=== PATIENT | female | born 1975 | race Hispanic/Latino ===

== ENCOUNTER 2016-05-09 16:26 | Observation (INO) | payer MEDICAID ==
[2016-05-09 16:33] VITALS: BMI 26.6
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
[2016-05-09] MEDS ORDERED: diaZEpam 10 mg/2 ml Inj IVP ONE (16:44)
[2016-05-09] MEDS ORDERED: Sodium Chloride 0.9% 1,000 ML IV SCH (16:45)
[2016-05-09 17:10] LABS: URINE BILIRUBIN NEGATIVE (NEGATIVE); URINE BLOOD TRACE-INTACT (NEGATIVE); URINE GLUCOSE (UA) >=1000 mg/dL (NEGATIVE); URINE KETONE 15 mg/dL (NEGATIVE); URINE LEUKOCYTE ESTERASE NEGATIVE Leu/uL (NEGATIVE); URINE PROTEIN NEGATIVE mg/dL (<30 mg/dL); URINE UROBILINOGEN 0.2 E.U./dL (<1 E.U./dL)
[2016-05-09 17:16] LABS: URINE APPEARANCE CLEAR (CLEAR); URINE COLOR YELLOW (YELLOW)
[2016-05-09 17:34] LABS: URINE BACTERIA FEW (NEG); URINE RBC NEGATIVE /hpf (0-2)
[2016-05-09 18:22] LABS: ADD MANUAL DIFF? NO
[2016-05-09] MEDS ORDERED: HYDROmorphone 1 mg/ml ISec IVP STA (18:29)
[2016-05-09 18:33] LABS: BASO # 0.03 K/mm3 (0.0-2.0); BASO % 0.3 % (0.0-3.0); EOS # 0.1 (0.0-0.7); EOS % 1.5 % (1.5-5.0); GRAN # 6.99 (1.4-6.5); GRAN % 76.1 % (50.0-68.0); HEMATOCRIT 39.6 % (36.0-48.0); LYMPH # 1.6 (1.2-3.4); LYMPH % 17.4 % (22.0-35.0); MEAN CORPUSCULAR HGB CONC 34.1 g/dl (31.0-37.0); MEAN PLATELET VOLUME 10.7 fl (7.0-11.0); MONO # 0.4 (0.1-0.6); MONO % 4.7 % (1.0-6.0); PLATELET COUNT 406 10^3/uL (120.0-450.0); RED CELL DISTRIBUTION WIDTH 14.3 % (11.5-14.5); WHITE BLOOD COUNT 9.2 10^3/ul (4.5-11.0)
[2016-05-09 18:38] LABS: ALB/GLOB RATIO 1.2 (1.1-1.8); ALKALINE PHOSPHATASE 97 U/L (38-133); ALT/SGPT 17 U/L (7-56); AST/SGOT 23 U/L (15-39); BILIRUBIN,TOTAL 0.7 mg/dL (0.2-1.3); BLOOD UREA NITROGEN 14 mg/dL (7-21); CALCIUM 9.4 mg/dL (8.4-10.5); CARBON DIOXIDE 28 mmol/L (21-33); CHLORIDE 96 mmol/L (98-107); GFR AFRICAN-AMERICAN > 60; SODIUM 132 mmol/L (132-148); TOTAL PROTEIN 6.8 g/dL (5.8-8.3)
[2016-05-09 18:47] LABS: GLUCOSE,RANDOM 630 mg/dL (70-110)
[2016-05-09] MEDS ORDERED: Insulin Regular 1 UNITS/0.01 ML ML IV STA ×2 (18:48→21:45)
[2016-05-09] MEDS ORDERED: Sodium Chloride 0.9% 1,000 ML IV STA (18:48)
--- NOTE | 2016-05-09 20:08 | RAD ---
PROCEDURE: Radiographs of the Lumbar Spine. HISTORY: lower back pain COMPARISON: CT lumbar spine without IV contrast performed 02/20/15 FINDINGS: BONES: Alignment appears satisfactory. No listhesis. No acute displaced fracture identified. DISC SPACES: Unremarkable. OTHER FINDINGS: None. IMPRESSION: No acute displaced fracture or subluxation identified.
[2016-05-09] MEDS ORDERED: Morphine 4 mg/ml ISec IVP STA (23:01)
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
[2016-05-10] MEDS ORDERED: Oxycodone/Acetaminophen 5/325 mg Tab PO PRN (00:27)
[2016-05-10 00:56] VITALS: RESP 20; TEMP 97.7
[2016-05-10] MEDS ORDERED: Insulin Detemir 100 units/ml Vial (Levemir) SC STA (00:59)
[2016-05-10 01:20] LABS: BLOOD UREA NITROGEN 14 mg/dL (7-21); CALCIUM 8.5 mg/dL (8.4-10.5); CARBON DIOXIDE 23 mmol/L (21-33); CHLORIDE 99 mmol/L (98-107); GFR AFRICAN-AMERICAN > 60; POTASSIUM 4.7 mmol/L (3.6-5.0); SODIUM 130 mmol/L (132-148)
[2016-05-10] MEDS: Sodium Chloride 0.9% 1,000 ML IV SCH ×2 (01:20→10:14)
[2016-05-10 01:24] LABS: GLUCOSE,RANDOM 430 mg/dL (70-110)
[2016-05-10 01:32] LABS: TROPONIN I < 0.01 ng/mL
[2016-05-10] MEDS ORDERED: Insulin Lispro 1 UNITS/0.01 ML SC STA (02:10)
[2016-05-10] MEDS ORDERED: Potassium Chloride 20 mEq/15 ml LIQ UD PO STA (02:11)
[2016-05-10 07:07] LABS: ADD MANUAL DIFF? NO
[2016-05-10 07:18] LABS: BASO # 0.05 K/mm3 (0.0-2.0); BASO % 0.4 % (0.0-3.0); EOS # 0.3 (0.0-0.7); EOS % 2.7 % (1.5-5.0); GRAN # 6.94 (1.4-6.5); GRAN % 61.5 % (50.0-68.0); HEMATOCRIT 34.3 % (36.0-48.0); LYMPH # 3.3 (1.2-3.4); LYMPH % 29.6 % (22.0-35.0); MEAN CELL VOLUME 85.1 fL (80.0-105.0); MEAN CORPUSCULAR HEMOGLOBIN 28.8 pg (25.0-35.0); MEAN CORPUSCULAR HGB CONC 33.8 g/dl (31.0-37.0); MEAN PLATELET VOLUME 10.1 fl (7.0-11.0); MONO # 0.7 (0.1-0.6); MONO % 5.8 % (1.0-6.0); PLATELET COUNT 360 10^3/uL (120.0-450.0); RED CELL DISTRIBUTION WIDTH 14.1 % (11.5-14.5); WHITE BLOOD COUNT 11.3 10^3/ul (4.5-11.0)
[2016-05-10] MEDS ORDERED: Insulin Lispro 1 UNITS/0.01 ML SC SCH (07:30)
[2016-05-10] MEDS ORDERED: Insulin Lispro (humaLOG) MEDIUM Coverage SC SCH (07:30)
[2016-05-10 07:38] LABS: ALKALINE PHOSPHATASE 70 U/L (38-133); ALT/SGPT 17 U/L (7-56); AST/SGOT 17 U/L (15-39); BILIRUBIN,TOTAL 0.5 mg/dL (0.2-1.3); BLOOD UREA NITROGEN 10 mg/dL (7-21); CALCIUM 8.6 mg/dL (8.4-10.5); CARBON DIOXIDE 25 mmol/L (21-33); CHLORIDE 105 mmol/L (98-107); CHOLESTEROL 119 mg/dL (130-200); GFR AFRICAN-AMERICAN > 60; GLUCOSE,RANDOM 136 mg/dL (70-110); POTASSIUM 3.8 mmol/L (3.6-5.0); SODIUM 135 mmol/L (132-148); TOTAL PROTEIN 5.8 g/dL (5.8-8.3)
[2016-05-10 07:50] LABS: TROPONIN I < 0.01 ng/mL
[2016-05-10 07:53] LABS: FREE T4 0.51 ng/dL (0.78-2.19); T4 3.6 ug/dL (5.5-11.0)
[2016-05-10 08:06] LABS: THYROID STIMULATING HORMONE 3.31 mIU/mL (0.46-4.68)
[2016-05-10 08:09] VITALS: BP 117/75; PULSE 82; O2SAT 99
--- NOTE | 2016-05-10 11:50 | US ---
HISTORY: Leg pain and swelling. Evaluate for DVT PHYSICIAN(S): John Gerardo MD. TECHNIQUE: Duplex sonography and color-flow Doppler with graded compression were used to evaluate the deep venous systems of both lower extremities. FINDINGS: The visualized deep venous systems of both lower extremities are sonographically normal and compressible. Normal wave forms and augmentation are seen. There is no sonographic evidence for deep venous thrombosis in the visualized segments of both lower extremities. IMPRESSION: No sonographic evidence for deep venous thrombosis in the visualized segments of both lower extremities.
--- NOTE | 2016-05-10 14:25 | CP.PCM.DIS ---
<Cabrera Joe - Last Filed: 05/10/16 14:25> Provider - Provider Date of Admission: 05/09/16 23:08 Attending physician: Charito Ornelas MD Primary care physician: NO PRIMARY CARE PROVIDER Time Spent in preparation of Discharge (in minutes): 45 Diagnosis - Discharge Diagnosis (1) Noncompliance with medication regimen Status: Active Priority: Medium (2) Uncontrolled diabetes mellitus Status: Acute Priority: Medium (3) Anxiety Status: Chronic Priority: Medium Hospital Course - Lab Results Lab Results: Most Recent Lab Values WBC 11.3 10^3/ul (4.5-11.0) H D 05/10/16 07:05 RBC 4.03 10^6/uL (3.5-6.1) 05/10/16 07:05 Hgb 11.6 gm/dL (12.0-16.0) L 05/10/16 07:05 Hct 34.3 % (36.0-48.0) L 05/10/16 07:05 MCV 85.1 fL (80.0-105.0) 05/10/16 07:05 MCH 28.8 pg (25.0-35.0) 05/10/16 07:05 MCHC 33.8 g/dl (31.0-37.0) 05/10/16 07:05 RDW 14.1 % (11.5-14.5) 05/10/16 07:05 Plt Count 360 10^3/uL (120.0-450.0) 05/10/16 07:05 MPV 10.1 fl (7.0-11.0) 05/10/16 07:05 Gran % 61.5 % (50.0-68.0) 05/10/16 07:05 Lymph % (Auto) 29.6 % (22.0-35.0) 05/10/16 07:05 [place] % (Auto) 5.8 % (1.0-6.0) 05/10/16 07:05 Eos % (Auto) 2.7 % (1.5-5.0) 05/10/16 07:05 Baso % (Auto) 0.4 % (0.0-3.0) 05/10/16 07:05 Gran # 6.94 (1.4-6.5) H 05/10/16 07:05 Lymph # 3.3 (1.2-3.4) 05/10/16 07:05 [place] # 0.7 (0.1-0.6) H 05/10/16 07:05 Eos # 0.3 (0.0-0.7) 05/10/16 07:05 Baso # 0.05 K/mm3 (0.0-2.0) 05/10/16 07:05 Sodium 135 mmol/L (132-148) 05/10/16 07:05 Potassium 3.8 mmol/L (3.6-5.0) 05/10/16 07:05 Chloride 105 mmol/L (98-107) 05/10/16 07:05 Carbon Dioxide 25 mmol/L (21-33) 05/10/16 07:05 Anion Gap 9 (10-20) L 05/10/16 07:05 BUN 10 mg/dL (7-21) 05/10/16 07:05 Creatinine 0.5 mg/dL (0.5-1.4) 05/10/16 07:05 Est GFR ( Amer) > 60 05/10/16 07:05 Est GFR (Non-Af Amer) > 60 05/10/16 07:05 POC Glucose (mg/dL) 247 mg/dL (65-110) H 05/10/16 04:32 Random Glucose 136 mg/dL (70-110) H 05/10/16 07:05 Calcium 8.6 mg/dL (8.4-10.5) 05/10/16 07:05 Total Bilirubin 0.5 mg/dL (0.2-1.3) 05/10/16 07:05 AST 17 U/L (15-39) 05/10/16 07:05 ALT 17 U/L (7-56) 05/10/16 07:05 Alkaline Phosphatase 70 U/L (38-133) 05/10/16 07:05 Lactate Dehydrogenase 320 U/L (333-699) L 05/10/16 07:05 Total Creatine Kinase 43 U/L (35-230) 05/10/16 07:05 Troponin I < 0.01 ng/mL 05/10/16 07:05 Total Protein 5.8 g/dL (5.8-8.3) 05/10/16 07:05 Albumin 3.0 g/dL (3.0-4.8) 05/10/16 07:05 Globulin 2.9 gm/dL 05/10/16 07:05 Albumin/Globulin Ratio 1.0 (1.1-1.8) L 05/10/16 07:05 Triglycerides 104 mg/dL (35-160) 05/10/16 07:05 Cholesterol 119 mg/dL (130-200) L 05/10/16 07:05 LDL Cholesterol Direct 74 mg/dL (0-129) 05/10/16 07:05 HDL Cholesterol 33 mg/dL (29-60) 05/10/16 07:05 Free T4 0.51 ng/dL (0.78-2.19) L 05/10/16 07:05 Thyroxine (T4) 3.6 ug/dL (5.5-11.0) L 05/10/16 07:05 TSH 3rd Generation 3.31 mIU/mL (0.46-4.68) 05/10/16 07:05 Urine Color Yellow (YELLOW) 05/09/16 17:00 Urine Appearance Clear (CLEAR) 05/09/16 17:00 Urine pH 6.0 (4.7-8.0) 05/09/16 17:00 Ur Specific [place] <= 1.005 (1.005-1.035) 05/09/16 17:00 Urine Protein Negative mg/dL (<30 mg/dL) 05/09/16 17:00 Urine Glucose (UA) >=1000 mg/dL (NEGATIVE) 05/09/16 17:00 Urine Ketones 15 mg/dL (NEGATIVE) H 05/09/16 17:00 Urine Blood Trace-intact (NEGATIVE) H 05/09/16 17:00 Urine Nitrate Negative (NEGATIVE) 05/09/16 17:00 Urine Bilirubin Negative (NEGATIVE) 05/09/16 17:00 Urine Urobilinogen 0.2 E.U./dL (<1 E.U./dL) 05/09/16 17:00 Ur Leukocyte Esterase Negative Luzmaria/uL (NEGATIVE) 05/09/16 17:00 Urine RBC Negative /hpf (0-2) 05/09/16 17:00 Urine WBC 1 - 3 /hpf (0-6) 03/18/17 17:00 Ur Epithelial Cells 4 - 5 /hpf (0-5) 05/09/16 17:00 Urine Bacteria Few (NEG) 05/09/16 17:00 Urine HCG, Qual Negative (NEGATIVE) 05/09/16 17:00 - Hospital Course Hospital Course: 41 y/o female, pmh including dm1/dka/pylonephritis/chronic sciatica pain/ chronic bilateral lower extremities neuropathy pain, nkda, c/o chronic lower back pain and lower extremities pain. Pt. stated that she has chronic bilateral leg pain for years due to the neuropathy and been following up with the pmd Dr. Kelli Van and was seeing pain management which she was on the oxycodone 15mg/tablet about 6 months ago in [place] but she moved back to the [facility] about 3 months ago. Pt. stated that last night, she could not stand the pain. The pain is chronic in nature, always sharp constant, 10/10, starting from L SI area radiating to L outer thigh. aggravated by movement. Pt seen in morning and pt asked for IV dilaudid because she was on PO dilaudid. When pt did not receive this, she became very upset. Later on in the morning, pt eloped. Discharge Exam - Head Exam Head Exam: ATRAUMATIC, NORMOCEPHALIC - Respiratory Exam Respiratory Exam: NORMAL BREATHING PATTERN, UNREMARKABLE - Cardiovascular Exam Cardiovascular Exam: RRR, +S1, +S2 - GI/Abdominal Exam GI & Abdominal Exam: Normal Bowel Sounds, Soft. absent: Tenderness - Extremities Exam Extremities exam: normal inspection - Neurological Exam Neurological exam: Alert, Oriented x3 - Psychiatric Exam Psychiatric exam: Normal Affect, Normal Mood - Skin Skin Exam: Intact, Normal Color, Warm Discharge Plan - Follow Up Plan Condition: GOOD Disposition: AGAINST MEDICAL ADVICE Referrals: PCP,CALLIE [Primary Care Provider] - <Charito Ornelas - Last Filed: 05/10/16 15:20> Provider - Provider Date of Admission: 05/09/16 23:08 Attending physician: Charito Ornelas MD Primary care physician: NO PRIMARY CARE PROVIDER Hospital Course - Lab Results Lab Results: Most Recent Lab Values WBC 11.3 10^3/ul (4.5-11.0) H D 05/10/16 07:05 RBC 4.03 10^6/uL (3.5-6.1) 05/10/16 07:05 Hgb 11.6 gm/dL (12.0-16.0) L 05/10/16 07:05 Hct 34.3 % (36.0-48.0) L 05/10/16 07:05 MCV 85.1 fL (80.0-105.0) 05/10/16 07:05 MCH 28.8 pg (25.0-35.0) 05/10/16 07:05 MCHC 33.8 g/dl (31.0-37.0) 05/10/16 07:05 RDW 14.1 % (11.5-14.5) 05/10/16 07:05 Plt Count 360 10^3/uL (120.0-450.0) 05/10/16 07:05 MPV 10.1 fl (7.0-11.0) 05/10/16 07:05 Gran % 61.5 % (50.0-68.0) 05/10/16 07:05 Lymph % (Auto) 29.6 % (22.0-35.0) 05/10/16 07:05 [place] % (Auto) 5.8 % (1.0-6.0) 05/10/16 07:05 Eos % (Auto) 2.7 % (1.5-5.0) 05/10/16 07:05 Baso % (Auto) 0.4 % (0.0-3.0) 05/10/16 07:05 Gran # 6.94 (1.4-6.5) H 05/10/16 07:05 Lymph # 3.3 (1.2-3.4) 05/10/16 07:05 [place] # 0.7 (0.1-0.6) H 05/10/16 07:05 Eos # 0.3 (0.0-0.7) 05/10/16 07:05 Baso # 0.05 K/mm3 (0.0-2.0) 05/10/16 07:05 Sodium 135 mmol/L (132-148) 05/10/16 07:05 Potassium 3.8 mmol/L (3.6-5.0) 05/10/16 07:05 Chloride 105 mmol/L (98-107) 05/10/16 07:05 Carbon Dioxide 25 mmol/L (21-33) 05/10/16 07:05 Anion Gap 9 (10-20) L 05/10/16 07:05 BUN 10 mg/dL (7-21) 05/10/16 07:05 Creatinine 0.5 mg/dL (0.5-1.4) 05/10/16 07:05 Est GFR ( Amer) > 60 05/10/16 07:05 Est GFR (Non-Af Amer) > 60 05/10/16 07:05 POC Glucose (mg/dL) 247 mg/dL (65-110) H 05/10/16 04:32 Random Glucose 136 mg/dL (70-110) H 05/10/16 07:05 Calcium 8.6 mg/dL (8.4-10.5) 05/10/16 07:05 Total Bilirubin 0.5 mg/dL (0.2-1.3) 05/10/16 07:05 AST 17 U/L (15-39) 05/10/16 07:05 ALT 17 U/L (7-56) 05/10/16 07:05 Alkaline Phosphatase 70 U/L (38-133) 05/10/16 07:05 Lactate Dehydrogenase 320 U/L (333-699) L 05/10/16 07:05 Total Creatine Kinase 43 U/L (35-230) 05/10/16 07:05 Troponin I < 0.01 ng/mL 05/10/16 07:05 Total Protein 5.8 g/dL (5.8-8.3) 05/10/16 07:05 Albumin 3.0 g/dL (3.0-4.8) 05/10/16 07:05 Globulin 2.9 gm/dL 05/10/16 07:05 Albumin/Globulin Ratio 1.0 (1.1-1.8) L 05/10/16 07:05 Triglycerides 104 mg/dL (35-160) 05/10/16 07:05 Cholesterol 119 mg/dL (130-200) L 05/10/16 07:05 LDL Cholesterol Direct 74 mg/dL (0-129) 05/10/16 07:05 HDL Cholesterol 33 mg/dL (29-60) 05/10/16 07:05 Free T4 0.51 ng/dL (0.78-2.19) L 05/10/16 07:05 Thyroxine (T4) 3.6 ug/dL (5.5-11.0) L 05/10/16 07:05 TSH 3rd Generation 3.31 mIU/mL (0.46-4.68) 05/10/16 07:05 Urine Color Yellow (YELLOW) 05/09/16 17:00 Urine Appearance Clear (CLEAR) 05/09/16 17:00 Urine pH 6.0 (4.7-8.0) 05/09/16 17:00 Ur Specific [place] <= 1.005 (1.005-1.035) 05/09/16 17:00 Urine Protein Negative mg/dL (<30 mg/dL) 05/09/16 17:00 Urine Glucose (UA) >=1000 mg/dL (NEGATIVE) 05/09/16 17:00 Urine Ketones 15 mg/dL (NEGATIVE) H 05/09/16 17:00 Urine Blood Trace-intact (NEGATIVE) H 05/09/16 17:00 Urine Nitrate Negative (NEGATIVE) 05/09/16 17:00 Urine Bilirubin Negative (NEGATIVE) 05/09/16 17:00 Urine Urobilinogen 0.2 E.U./dL (<1 E.U./dL) 05/09/16 17:00 Ur Leukocyte Esterase Negative [place]/uL (NEGATIVE) 05/09/16 17:00 Urine RBC Negative /hpf (0-2) 05/09/16 17:00 Urine WBC 1 - 3 /hpf (0-6) 05/09/16 17:00 Ur Epithelial Cells 4 - 5 /hpf (0-5) 05/09/16 17:00 Urine Bacteria Few (NEG) 05/09/16 17:00 Urine HCG, Qual Negative (NEGATIVE) 05/09/16 17:00 Attending/Attestation - Attestation I have personally seen and examined this patient.: Yes I have fully participated in the care of the patient.: Yes I have reviewed all pertinent clinical information, including history, physical exam and plan: Yes Notes (Text): 05/10/16 15:13 41 year old female with past medical history of diabetes, reported chronic back pain, peripheral neuropathy with multiple admissions for DKA and poorly controlled diabetes presented last night with complain of lower extremities pain due to her neuropathy. She was found to have poorly controlled diabetes with elevated blood sugars >600. She was given insulin with improvement of her blood sugar this morning. She has LE dopplers and lumbar xray which were negative. She was on percocet and demanding only iv dilaudid. When I spoke with her this morning she was agreeing to try po dilaudid and wait to be evaluated by endocrinology. Plan would be to monitor her fingersticks during the day if any medications needed to be adjusted. She was agreeable. She also agreed for PT if she was complaining of difficulty standing/walking due to pain. However after rounds, I was informed patient called her boyfriend to come and had walked out / eloped. Overall prognosis is poor due to poorly controlled diabetes, noncompliance and narcotics abuse. Charito Ornelas MD Hospitalist.
[2016-05-10] MEDS ORDERED: Insulin Detemir 100 units/ml Vial (Levemir) SC SCH (22:00)
== END 2016-05-10 12:01 | disposition left against medical advice (07) ==
LOC: ED 16:26 → ERH 23:08 → 5RSO 05-10 00:34
PROVIDERS: ADMIT Internal Medicine; ATTEND Internal Medicine
DX: E10.65 Type 1 diabetes mellitus with hyperglycemia (principal); E10.40 Type 1 diabetes mellitus with diabetic neuropathy, unspecified; M54.30 Sciatica, unspecified side; M54.9 Dorsalgia, unspecified; G89.29 Other chronic pain; F41.9 Anxiety disorder, unspecified; E03.9 Hypothyroidism, unspecified; N83.209 Unspecified ovarian cyst, unspecified side; F17.210 Nicotine dependence, cigarettes, uncomplicated
CPT/HCPCS: 36415; 72110; 80053; 80061; 81001; 82550; 82948; 83036; 83615; 84439; 84443; 84484; 84703; 85025; 93970; 96374; 96375; 99285; G0378; J1170; J1885; J2270; J3360; J7040

== ENCOUNTER 2016-06-15 10:42 | Emergency (ER) | payer MEDICAID ==
[2016-06-15 10:42] VITALS: BMI 26.6
[2016-06-15] MEDS ORDERED: Sodium Chloride 0.9% 1,000 ML IV STA (11:14)
[2016-06-15 11:48] LABS: ADD MANUAL DIFF? NO
[2016-06-15 11:53] LABS: BASO # 0.04 K/mm3 (0.0-2.0); BASO % 0.3 % (0.0-3.0); EOS # 0.2 (0.0-0.7); EOS % 1.5 % (1.5-5.0); GRAN % 72.8 % (50.0-68.0); HEMATOCRIT 37.1 % (36.0-48.0); LYMPH # 2.3 (1.2-3.4); LYMPH % 19.3 % (22.0-35.0); MEAN CELL VOLUME 87.3 fL (80.0-105.0); MEAN CORPUSCULAR HEMOGLOBIN 29.6 pg (25.0-35.0); MEAN PLATELET VOLUME 10.4 fl (7.0-11.0); MONO # 0.7 (0.1-0.6); MONO % 6.1 % (1.0-6.0); PLATELET COUNT 452 10^3/uL (120.0-450.0); RED CELL DISTRIBUTION WIDTH 14.5 % (11.5-14.5); URINE BILIRUBIN NEGATIVE (NEGATIVE); URINE BLOOD LARGE (NEGATIVE); URINE GLUCOSE (UA) >=1000 mg/dL (NEGATIVE); URINE KETONE TRACE mg/dL (NEGATIVE); URINE LEUKOCYTE ESTERASE NEGATIVE Leu/uL (NEGATIVE); URINE PROTEIN NEGATIVE mg/dL (<30 mg/dL); URINE UROBILINOGEN 0.2 E.U./dL (<1 E.U./dL); WHITE BLOOD COUNT 11.7 10^3/ul (4.5-11.0)
[2016-06-15 11:57] LABS: URINE APPEARANCE CLEAR (CLEAR); URINE COLOR YELLOW (YELLOW)
[2016-06-15 12:03] LABS: INR 0.91 (0.93-1.08); PARTIAL THROMBOPLASTIN TIME 26.3 Seconds (23.7-30.8); URINE BACTERIA FEW (NEG); URINE WBC 0 - 2 /hpf (0-6)
[2016-06-15 12:04] LABS: ALB/GLOB RATIO 1.2 (1.1-1.8); ALKALINE PHOSPHATASE 65 U/L (38-133); ALT/SGPT 23 U/L (7-56); AST/SGOT 20 U/L (15-39); BILIRUBIN,TOTAL 0.5 mg/dL (0.2-1.3); BLOOD UREA NITROGEN 13 mg/dL (7-21); CALCIUM 9.3 mg/dL (8.4-10.5); CARBON DIOXIDE 29 mmol/L (21-33); CHLORIDE 98 mmol/L (98-107); GFR AFRICAN-AMERICAN > 60; POTASSIUM 4.4 mmol/L (3.6-5.0); SODIUM 134 mmol/L (132-148); TOTAL PROTEIN 6.9 g/dL (5.8-8.3)
[2016-06-15 12:17] LABS: GLUCOSE,RANDOM 346 mg/dL (70-110)
--- NOTE | 2016-06-15 12:22 | US ---
PROCEDURE: Pelvic ultrasound examination HISTORY: abdominal pain/ COMPARISON: Not available TECHNIQUE: Transvaginal and transabdominal FINDINGS: The uterus measures 9.4 x 6.2 x 6.7 cm. There is no uterine mass. The endometrium measures 33 mm in width. There is no intrauterine gestational sac identified. There is no fluid seen within the endometrial cavity. The cervix is unremarkable. The right ovary measures 2.1 x 1.5 x 2.0 cm. Normal flow is demonstrated. The left ovary measures 3.7 x 3.1 x 3.1 cm. Normal flow is demonstrated. Immediately adjacent to the left ovary there is a probable ectopic gestation. A gestational sac and yolk sac are visualized. The gestational sac diameter measures 7 mm, out of range for determination of age. A 2 mm yolk sac is visualized. There is no pole. There is no cardiac activity detectable. There is no free fluid seen in the cul-de-sac. IMPRESSION: Probable left sided ectopic gestation adjacent to left ovary. Gestational sac and yolk sac visualized. No pole or cardiac activity are visualized. Gestational sac diameter is out of range for determination of age. These findings were discussed by telephone with OLGA De La Rosa at 12:20 p.m. on 06/15/2016.
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
[2016-06-15 13:49] VITALS: BP 117/74; PULSE 87; RESP 16; TEMP 98.7; O2SAT 99
== END 2016-06-15 13:55 | disposition short-term general hospital (02) ==
LOC: ED 10:42
DX: O00.90 Unspecified ectopic pregnancy without intrauterine pregnancy (principal); E10.9 Type 1 diabetes mellitus without complications
CPT/HCPCS: 76817; 80053; 81001; 84702; 84703; 85025; 85610; 85730; 86850; 86900; 99283; J7040

== ENCOUNTER 2016-06-25 15:11 | Emergency (ER) | payer MEDICAID ==
[2016-06-25 15:11] VITALS: BMI 26.6
[2016-06-25 15:22] VITALS: TEMP 99
[2016-06-25] MEDS ORDERED: Morphine 4 mg/ml ISec IVP STA ×2 (15:38→17:40)
--- NOTE | 2016-06-25 15:48 | ED PDOC ---
Arrival/HPI - General Chief Complaint: Abnormal Skin Integrity Time Seen by Provider: 06/25/16 15:18 Historian: Patient - History of Present Illness Narrative History of Present Illness (Text): 06/25/16 15:47 41 year old female presents with mid and lower abdominal pain, worse since laproscopic surgery to remove fallopian tube for ectopic on 06/18/16. Patient states she was given 15 Percocet's but ran out. Patient states the pain is still persistent. She reports she still has vaginal bleeding. She also reports some nausea, which has now resolved. No discharge or urinary symptoms. No vomiting, diarrhea, or fever. Time/Duration: 1 week Symptom Onset: Gradual Symptom Course: Unchanged Modifying Factors (Text): None Associated Symptoms (Text): None Past Medical History - Provider Review Nursing Documentation Reviewed: Yes - Infectious Disease Hx of Infectious Diseases: None - Tetanus Immunization Tetanus Immunization: Unknown - Cardiac Hx Cardiac Arrhythmia: No Hx Congestive Heart Failure: No Hx Hypertension: No Hx Mitral Valve Prolapse: No Hx Pacemaker: No Hx Peripheral Edema: No - Pulmonary Hx Asthma: Yes (child) Hx Bronchitis: No Hx Chronic Obstructive Pulmonary Disease (COPD): No Hx Emphysema: No Hx Pneumonia: No Hx Sleep Apnea: No - Neurological Hx Alzheimer's Disease: No Hx Dementia: No Hx Migraine: Yes Hx Parkinson's Disease: No Hx Seizures: Yes (child) Hx Transient Ischemic Attacks (TIA): No - HEENT Hx HEENT Disorder: No - Renal Hx Renal Disorder: No Hx Kidney Stones: No - Endocrine/Metabolic Hx Hyperthyroidism: No Hx Hypothyroidism: Yes - Hematological/Oncological Hx Anemia: No Hx Sickle Cell Disease: No - Integumentary Hx Dermatological Disorder: No - Musculoskeletal/Rheumatological Hx Arthritis: No Hx Fractures: No Hx Osteoporosis: No - Gastrointestinal Hx Crohn's Disease: Yes (dc 03/2014) Hx Diverticulitis: (denius) Hx Gall Bladder Disease: No Hx Gastrointestinal Ulcer: No Hx Pancreatitis: No - Genitourinary/Gynecological Hx Sexually Transmitted Diseases: No - Psychiatric Hx Anxiety: Yes Hx Bipolar Disorder: No Hx Depression: Yes Hx Post Traumatic Stress Disorder: No Hx Schizophrenia: No Hx Substance Use: No - Past Surgical History Past Surgical History: No Previous - Surgical History Hx Appendectomy: No Hx Cholecystectomy: No Hx Coronary Stent: No - Anesthesia Hx Anesthesia: Yes Hx Anesthesia Reactions: No Hx Malignant Hyperthermia: No - Suicidal Assessment Feels Threatened In Home Enviroment: No Family/Social History - Physician Review Nursing Documentation Reviewed: Yes Family/Social History: Unknown Family HX Smoking Status: Heavy Smoker > 10 Cigarettes Daily Hx Alcohol Use: No (quit 4yrs ago) Hx Substance Use: No Hx Substance Use Treatment: No Allergies/Home Meds Allergies/Adverse Reactions: Allergies No Known Allergies Allergy (Verified 06/25/16 15:19) Home Medications: Home Meds Medication Instructions Recorded Confirmed Insulin Lispro [humALOG] 0 units SC AC 06/15/16 06/25/16 Review of Systems - Physician Review All systems were reviewed & negative as marked: Yes - Review of Systems Gastrointestinal: Abdominal Pain, Nausea (resolved). absent: Diarrhea, Vomiting Genitourinary Female: Vaginal Bleeding. absent: Dysuria, Hematuria, Vaginal Discharge Physical Exam Vital Signs Reviewed: Yes Vital Signs Temp Pulse Resp BP Pulse Ox 06/25/16 15:21 99.0 F 92 H 16 104/67 99 Temperature: Afebrile Blood Pressure: Normal Pulse: Regular Respiratory Rate: Normal Appearance: Positive for: Well-Appearing, Non-Toxic, Comfortable Pain Distress: None Mental Status: Positive for: Alert and Oriented X 3 Medical Decision Making ED Course and Treatment: Impression: 41 year old female presents with mid and lower abdominal pain, worse since laproscopic surgery to remove fallopian tube for ectopic on 06/18/16. Differential Diagnosis included but are not limited to: Abdominal pain after surgery r/o abscess vs post op pain Plan: -- CT Abdomen/Pelvis -- Morphine -- Labs -- Reassess and disposition Prior Visits: Notes and results from previous visits were reviewed. Patient discharged on after laproscopic surgery at [place]. Progress Notes: 06/25/16 19:05 Patient refused vaginal exam. She said she's had too mnay. Signed out to Dr. Majano to f/u CT, reevaluate and disposition. - Lab Interpretations Lab Results: 06/25/16 15:50 06/25/16 16:35 Lab Results 06/25/16 16:35: Sodium 135, Potassium 3.8, Chloride 101, Carbon Dioxide 29, Anion Gap 9 L, BUN 9, Creatinine 0.5, Est GFR ( Amer) > 60, Est GFR (Non- Af Amer) > 60, Random Glucose 237 H, Calcium 8.5, Total Bilirubin 0.4, AST 31, ALT 36, Alkaline Phosphatase 77, Total Protein 6.4, Albumin 3.4, Globulin 3.0, Albumin/Globulin Ratio 1.1, Lipase < 10 L 06/25/16 15:50: PT 10.4, INR 0.96, APTT 27.3 06/25/16 15:50: WBC 12.1 H, RBC 4.02, Hgb 12.1, Hct 35.4 L, MCV 88.1, MCH 30.1, MCHC 34.2, RDW 15.0 H, Plt Count 449, MPV 9.9, Gran % 71.0 H, Lymph % (Auto) 20.6 L, [place] % (Auto) 6.6 H, Eos % (Auto) 1.4 L, Baso % (Auto) 0.4, Gran # 8.57 H, Lymph # 2.5, Kay # 0.8 H, Eos # 0.2, Baso # 0.05 - RAD Interpretation Radiology Orders: 06/25/16 15:39 ABD & PELVIS IV CONTRAST ONLY [CT] Stat - Medication Orders Current Medication Orders: Discontinued Medications Iohexol (Omnipaque 350 100 Ml) Confirm Administered Dose 350 mg .ROUTE .STK-MED ONE Stop: 06/25/16 17:48 Morphine Sulfate (Morphine) 4 mg IVP STAT STA Stop: 06/25/16 15:39 Last Admin: 06/25/16 15:55 Dose: 4 mg Morphine Sulfate (Morphine) 4 mg IVP STAT STA Stop: 06/25/16 17:41 Last Admin: 06/25/16 17:45 Dose: 4 mg - Scribe Statement The provider has reviewed the documentation as recorded by the Leatha Burris Provider Scribe Attestation: All medical record entries made by the Leatha were at my direction and personally dictated by me. I have reviewed the chart and agree that the record accurately reflects my personal performance of the history, physical exam, medical decision making, and the department course for this patient. I have also personally directed, reviewed, and agree with the discharge instructions and disposition. Disposition/Present on Arrival - Present on Arrival Any Indicators Present on Arrival: No History of DVT/PE: No History of Uncontrolled Diabetes: No Urinary Catheter: No History of Decub. Ulcer: No History Surgical Site Infection Following: None - Disposition Have Diagnosis and Disposition been Completed?: Yes Diagnosis: Abdominal pain Disposition Time: 19:06 Condition: FAIR Referrals: Kirstie Muller MD [Primary Care Provider] - Follow up with primary
[2016-06-25 15:58] LABS: ADD MANUAL DIFF? NO
[2016-06-25 16:02] LABS: BASO # 0.05 K/mm3 (0.0-2.0); BASO % 0.4 % (0.0-3.0); EOS # 0.2 (0.0-0.7); EOS % 1.4 % (1.5-5.0); GRAN # 8.57 (1.4-6.5); HEMATOCRIT 35.4 % (36.0-48.0); LYMPH # 2.5 (1.2-3.4); LYMPH % 20.6 % (22.0-35.0); MEAN CELL VOLUME 88.1 fL (80.0-105.0); MEAN CORPUSCULAR HEMOGLOBIN 30.1 pg (25.0-35.0); MEAN CORPUSCULAR HGB CONC 34.2 g/dl (31.0-37.0); MEAN PLATELET VOLUME 9.9 fl (7.0-11.0); MONO # 0.8 (0.1-0.6); MONO % 6.6 % (1.0-6.0); PLATELET COUNT 449 10^3/uL (120.0-450.0); WHITE BLOOD COUNT 12.1 10^3/ul (4.5-11.0)
[2016-06-25 16:12] LABS: INR 0.96 (0.93-1.08); PARTIAL THROMBOPLASTIN TIME 27.3 Seconds (23.7-30.8)
[2016-06-25 16:51] LABS: ALB/GLOB RATIO 1.1 (1.1-1.8); ALKALINE PHOSPHATASE 77 U/L (38-133); ALT/SGPT 36 U/L (7-56); AST/SGOT 31 U/L (15-39); BILIRUBIN,TOTAL 0.4 mg/dL (0.2-1.3); BLOOD UREA NITROGEN 9 mg/dL (7-21); CALCIUM 8.5 mg/dL (8.4-10.5); CARBON DIOXIDE 29 mmol/L (21-33); CHLORIDE 101 mmol/L (98-107); GFR AFRICAN-AMERICAN > 60; GLUCOSE,RANDOM 237 mg/dL (70-110); POTASSIUM 3.8 mmol/L (3.6-5.0); SODIUM 135 mmol/L (132-148); TOTAL PROTEIN 6.4 g/dL (5.8-8.3)
[2016-06-25 16:53] LABS: LIPASE < 10 U/L (23-300)
[2016-06-25] MEDS ORDERED: Iohexol 350 MG/100 ML VIAL ONE (17:47)
--- NOTE | 2016-06-25 19:30 | CT ---
EXAM: CT Abdomen and Pelvis With Intravenous Contrast CLINICAL HISTORY: 41 years old, female; Pain; Abdominal pain; Generalized; Prior surgery; Surgery type: Laporoscopy; Additional info: Abd pain S/P laporoscopy R/O abscess TECHNIQUE: Axial computed tomography images of the abdomen and pelvis with intravenous contrast. This CT exam was performed using one or more of the following dose reduction techniques: automated exposure control, adjustment of the mA and/or kV according to patient size, and/or use of iterative reconstruction technique. Coronal and sagittal reformatted images were created and reviewed. CONTRAST: 100 mL of omni 350 administered intravenously. EXAM DATE/TIME: 06/25/2016 3:39 PM COMPARISON: CT - ABD PELVIS PO CONTRAST ONLY 02/20/2015 1:55:16 PM FINDINGS: Lower thorax: Heart size is normal. There is prominence of interstitial markings at the lung bases. There are small scattered cysts. There are multiple small peripheral nodular opacities all less than 4 mm, similar findings seen on a prior study.. There is minimal pneumomediastinum ABDOMEN: Liver: unremarkable Gallbladder and bile ducts: unremarkable Pancreas: unremarkable Spleen: unremarkable Adrenals: unremarkable Kidneys and ureters: There is a low attenuation right renal lesion not a simple cyst by CT criteria.Kidneys and ureters are otherwise unremarkable. Stomach and bowel: Stomach is partially distended. Rotation is normal. Small bowel is mildly distended with fluid and air. There is no obstruction. Terminal ileum is unremarkable. Appendix is unremarkable.Colon is incompletely distended which limits evaluation. Appendix: See stomach and bowel PELVIS: Bladder: unremarkable Reproductive: Uterus and adnexal structures are unremarkable. There are clips in the left adnexa. ABDOMEN and PELVIS: Intraperitoneal space: There is no free fluid. There is a small amount of air in both inguinal regions. There is minimal free air in the upper abdomen. Bones/joints: There are no acute osseous abnormalities. There is sclerosis at the sacroiliac joints. Soft tissues: . There is minimal free air in the upper abdomen. There is edema and emphysema at the umbilicus. There is edema and emphysema in the right lateral abdominal wall. There is emphysema in the left lateral abdominal wall. Vasculature: Vascular structures are unremarkable. Lymph nodes: There is no pathologic adenopathy. IMPRESSION: Postsurgical changes in the abdominal wall with edema and emphysema; trace free intraperitoneal air most likely postoperative; minimal pneumomediastinum most likely iatrogenic; no acute solid visceral abnormality, possible mild ileus, no obstruction, no abscess Additional findings as described above.
[2016-06-25 19:36] VITALS: BP 127/75; PULSE 91; RESP 18; O2SAT 94
[2016-06-25 19:51] LABS: URINE BILIRUBIN NEGATIVE (NEGATIVE); URINE BLOOD LARGE (NEGATIVE); URINE GLUCOSE (UA) >=1000 mg/dL (NEGATIVE); URINE KETONE 15 mg/dL (NEGATIVE); URINE LEUKOCYTE ESTERASE NEGATIVE Leu/uL (NEGATIVE); URINE PROTEIN 100 mg/dL (<30 mg/dL); URINE UROBILINOGEN 0.2 E.U./dL (<1 E.U./dL)
[2016-06-25 19:54] LABS: URINE APPEARANCE CLEAR (CLEAR); URINE COLOR DARK YELLOW (YELLOW)
[2016-06-25] MEDS ORDERED: Oxycodone/Acetaminophen 5/325 mg Tab PO STA (20:07)
[2016-06-25 20:36] LABS: URINE RBC TNTC /hpf (0-2); URINE WBC 0 - 2 /hpf (0-6)
--- NOTE | 2016-06-25 20:45 | ED PDOC ---
Physical Exam Vital Signs Temp Pulse Resp BP Pulse Ox 06/25/16 19:10 91 H 18 127/75 94 L 06/25/16 17:20 88 16 102/70 96 06/25/16 15:21 99.0 F 92 H 16 104/67 99 Temperature: Afebrile Blood Pressure: Normal Pulse: Regular Respiratory Rate: Normal Appearance: Positive for: Well-Appearing, Non-Toxic, Comfortable Pain Distress: None Mental Status: Positive for: Alert and Oriented X 3 Medical Decision Making ED Course and Treatment: 06/25/16 19:00 Patient signed out to me by Dr. Hogan pending CT, reevaluation, and disposition. EXAM: CT Abdomen and Pelvis With Intravenous Contrast FINDINGS: Lower thorax: Heart size is normal. There is prominence of interstitial markings at the lung bases. There are small scattered cysts. There are multiple small peripheral nodular opacities all less than 4 mm, similar findings seen on a prior study.. There is minimal pneumomediastinum ABDOMEN: Liver: unremarkable Gallbladder and bile ducts: unremarkable Pancreas: unremarkable Spleen: unremarkable Adrenals: unremarkable Kidneys and ureters: There is a low attenuation right renal lesion not a simple cyst by CT criteria.Kidneys and ureters are otherwise unremarkable. Stomach and bowel: Stomach is partially distended. Rotation is normal. Small bowel is mildly distended with fluid and air. There is no obstruction. Terminal ileum is unremarkable. Appendix is unremarkable.Colon is incompletely distended which limits evaluation. Appendix: See stomach and bowel PELVIS: Bladder: unremarkable Reproductive: Uterus and adnexal structures are unremarkable. There are clips in the left adnexa. ABDOMEN and PELVIS: Intraperitoneal space: There is no free fluid. There is a small amount of air in both inguinal regions. There is minimal free air in the upper abdomen. Bones/joints: There are no acute osseous abnormalities. There is sclerosis at the sacroiliac joints. Soft tissues: . There is minimal free air in the upper abdomen. There is edema and emphysema at the umbilicus. There is edema and emphysema in the right lateral abdominal wall. There is emphysema in the left lateral abdominal wall. Vasculature: Vascular structures are unremarkable. Lymph nodes: There is no pathologic adenopathy. IMPRESSION: Postsurgical changes in the abdominal wall with edema and emphysema ; trace free intraperitoneal air most likely postoperative; minimal pneumomediastinum most likely iatrogenic; no acute solid visceral abnormality, possible mild ileus, no obstruction, no abscess Additional findings as described above. Dictated and Authenticated by: Dot Enamorado MD 06/25/2016 7:29 PM Eastern Time ([place] & [place]) 06/25/16 20:56 Patient continued to complain of pain - given percocet in the ED. CT a/p with changes that are post-op. Minimal pneumomediastinum also likely from anesthesia with no symptoms; no further treatment is required at this time. Discussed with Dr. Campo, her surgeon, who agrees with discharge and f/u. Patient told she needs to f/u Dr. Campo and her PMD. - Lab Interpretations Lab Results: 06/25/16 15:50 06/25/16 16:35 Lab Results 06/25/16 19:40: Urine Color Dark yellow, Urine Appearance Clear, Urine pH 6.0, Ur Specific [place] 1.020, Urine Protein 100 H, Urine Glucose (UA) >=1000, Urine Ketones 15 H, Urine Blood Large H, Urine Nitrate Negative, Urine Bilirubin Negative, Urine Urobilinogen 0.2, Ur Leukocyte Esterase Negative, Urine RBC Tntc, Urine WBC 0 - 2, Ur Epithelial Cells 10 - 12 06/25/16 19:10: POC Glucose (mg/dL) 212 H 06/25/16 16:35: Sodium 135, Potassium 3.8, Chloride 101, Carbon Dioxide 29, Anion Gap 9 L, BUN 9, Creatinine 0.5, Est GFR ( Amer) > 60, Est GFR (Non- Af Amer) > 60, Random Glucose 237 H, Calcium 8.5, Total Bilirubin 0.4, AST 31, ALT 36, Alkaline Phosphatase 77, Total Protein 6.4, Albumin 3.4, Globulin 3.0, Albumin/Globulin Ratio 1.1, Lipase < 10 L 06/25/16 15:50: PT 10.4, INR 0.96, APTT 27.3 06/25/16 15:50: WBC 12.1 H, RBC 4.02, Hgb 12.1, Hct 35.4 L, MCV 88.1, MCH 30.1, MCHC 34.2, RDW 15.0 H, Plt Count 449, MPV 9.9, Gran % 71.0 H, Lymph % (Auto) 20.6 L, [place] % (Auto) 6.6 H, Eos % (Auto) 1.4 L, Baso % (Auto) 0.4, Gran # 8.57 H, Lymph # 2.5, [place] # 0.8 H, Eos # 0.2, Baso # 0.05 - RAD Interpretation Radiology Orders: 06/25/16 15:39 ABD & PELVIS IV CONTRAST ONLY [CT] Stat - Medication Orders Current Medication Orders: Discontinued Medications Iohexol (Omnipaque 350 100 Ml) Confirm Administered Dose 350 mg .ROUTE .STK-MED ONE Stop: 06/25/16 17:48 Morphine Sulfate (Morphine) 4 mg IVP STAT STA Stop: 06/25/16 15:39 Last Admin: 06/25/16 15:55 Dose: 4 mg Morphine Sulfate (Morphine) 4 mg IVP STAT STA Stop: 06/25/16 17:41 Last Admin: 06/25/16 17:45 Dose: 4 mg Oxycodone/Acetaminophen (Percocet 5/325 Mg Tab) 2 tab PO STAT STA Stop: 06/25/16 20:08 Last Admin: 06/25/16 20:24 Dose: 2 tab Disposition/Present on Arrival - Present on Arrival Any Indicators Present on Arrival: No History of DVT/PE: No History of Uncontrolled Diabetes: No Urinary Catheter: No History of Decub. Ulcer: No History Surgical Site Infection Following: None - Disposition Have Diagnosis and Disposition been Completed?: Yes Diagnosis: Abdominal pain Disposition: HOME/ ROUTINE Disposition Time: 20:40 Patient Problems: Current Active Problems Problem Status Onset Abdominal pain Acute Condition: FAIR Additional Instructions: Follow up with gynecology and your primary care doctor. Ibuprofen for pain. Return to the emergency department if any new concerning symptoms. Referrals: Kirstie Muller MD [Primary Care Provider] - Follow up with primary José Antonio Campo MD [Staff Provider] - Follow up with primary
== END 2016-06-25 20:59 | disposition home or self-care (01) ==
LOC: ED 15:11
DX: R10.9 Unspecified abdominal pain (principal); Z98.890 Other specified postprocedural states
CPT/HCPCS: 74177; 80053; 81001; 82948; 83690; 85025; 85610; 85730; 96374; 96376; 99284; J2270; Q9967

== ENCOUNTER 2016-08-08 20:45 | Observation (INO) | payer MEDICAID ==
--- NOTE | 2016-08-08 21:03 | ED PDOC ---
Arrival/HPI - General Chief Complaint: Back Pain Time Seen by Provider: 08/08/16 20:51 Historian: Patient - History of Present Illness Narrative History of Present Illness (Text): 08/08/16 21:03 Darcy Brewster is a 41 year old female, whose past medical history includes chronic back pain, diabetes, neuropathy, hypothyroidism, laprascopic left salpingectomy, and anxiety, who presents to the Emergency department complaining of lower back pain. Patient states she has a history of chronic back pain for which she has been seen by her chiropractor, but states lower back pain worsened tonight. Patient states she took Percocet at home, but denies any significant. Patient denies any fever, chills, chest pain, shortness of breath, nausea, vomiting, diarrhea, neck pain, headache, dizziness, or any other complaints. PMD: Dr. Gerald Van Symptom Onset: Gradual Symptom Course: Worsening Activities at Onset: Rest, Light Context: Home Past Medical History - Provider Review Nursing Documentation Reviewed: Yes - Infectious Disease Hx of Infectious Diseases: None - Tetanus Immunization Tetanus Immunization: Unknown - Cardiac Hx Cardiac Disorders: No Hx Cardiac Arrhythmia: No Hx Congestive Heart Failure: No Hx Hypertension: No Hx Mitral Valve Prolapse: No Hx Pacemaker: No Hx Peripheral Edema: No - Pulmonary Hx Respiratory Disorders: Yes Hx Asthma: Yes (child) Hx Bronchitis: No Hx Chronic Obstructive Pulmonary Disease (COPD): No Hx Emphysema: No Hx Pneumonia: No Hx Sleep Apnea: No - Neurological Hx Alzheimer's Disease: No Hx Dementia: No Hx Migraine: Yes Hx Parkinson's Disease: No Hx Seizures: Yes (child) Hx Transient Ischemic Attacks (TIA): No - HEENT Hx HEENT Disorder: No - Renal Hx Renal Disorder: No Hx Kidney Stones: No - Endocrine/Metabolic Hx Hyperthyroidism: No Hx Hypothyroidism: Yes - Hematological/Oncological Hx Anemia: No Hx Sickle Cell Disease: No - Integumentary Hx Dermatological Disorder: No - Musculoskeletal/Rheumatological Hx Musculoskeletal Disorders: Yes Hx Arthritis: No Hx Fractures: No Hx Osteoporosis: No - Gastrointestinal Hx Crohn's Disease: Yes (dc 03/2014) Hx Diverticulitis: (denius) Hx Gall Bladder Disease: No Hx Gastrointestinal Ulcer: No Hx Pancreatitis: No - Genitourinary/Gynecological Hx Sexually Transmitted Diseases: No - Psychiatric Hx Anxiety: Yes Hx Bipolar Disorder: No Hx Depression: Yes Hx Post Traumatic Stress Disorder: No Hx Schizophrenia: No Hx Substance Use: No - Past Surgical History Past Surgical History: No Previous - Surgical History Hx Appendectomy: No Hx Cholecystectomy: No Hx Coronary Stent: No - Anesthesia Hx Anesthesia: No - Suicidal Assessment Feels Threatened In Home Enviroment: No Family/Social History - Physician Review Nursing Documentation Reviewed: Yes Family/Social History: Unknown Family HX Smoking Status: Heavy Smoker > 10 Cigarettes Daily Hx Alcohol Use: No (quit 4yrs ago) Hx Substance Use: No Hx Substance Use Treatment: No Allergies/Home Meds Allergies/Adverse Reactions: Allergies No Known Allergies Allergy (Verified 08/08/16 20:53) Home Medications: Home Meds Medication Instructions Recorded Confirmed Insulin Lispro [humALOG] 0 units SC AC 06/15/16 08/08/16 Review of Systems - Physician Review All systems were reviewed & negative as marked: Yes - Review of Systems Constitutional: Normal. absent: Fevers Eyes: Normal ENT: Normal Respiratory: Normal. absent: SOB, Cough Cardiovascular: Normal. absent: Chest Pain Gastrointestinal: Normal. absent: Abdominal Pain, Diarrhea, Nausea Genitourinary Female: Normal. absent: Dysuria, Frequency, Hematuria, Urine Output Changes Musculoskeletal: Back Pain. absent: Neck Pain Skin: Normal. absent: Rash Neurological: Normal. absent: Headache, Dizziness Endocrine: Normal Hemo/Lymphatic: Normal Psychiatric: Normal Physical Exam Vital Signs Reviewed: Yes Vital Signs Temp Pulse Resp BP Pulse Ox 08/09/16 00:37 68 18 95 08/08/16 20:56 98.2 F 84 18 136/81 100 Temperature: Afebrile Blood Pressure: Normal Pulse: Regular Respiratory Rate: Normal Appearance: Positive for: Well-Appearing, Non-Toxic, Comfortable Pain Distress: None Mental Status: Positive for: Alert and Oriented X 3 - Systems Exam Head: Present: Atraumatic, Normocephalic Pupils: Present: PERRL Extroacular Muscles: Present: EOMI Conjunctiva: Present: Normal Mouth: Present: Moist Mucous Membranes Neck: Present: Normal Range of Motion Respiratory/Chest: Present: Clear to Auscultation, Good Air Exchange. No: Respiratory Distress, Accessory Muscle Use Cardiovascular: Present: Regular Rate and Rhythm, Normal S1, S2. No: Murmurs Abdomen: Present: Normal Bowel Sounds. No: Tenderness, Distention, Peritoneal Signs Back: Present: Normal Inspection, Other (Moving all extremities without difficulty). No: CVA Tenderness, Midline Tenderness, Paraspinal Tenderness Upper Extremity: Present: Normal Inspection. No: Cyanosis, Edema Lower Extremity: Present: Normal Inspection, NORMAL PULSES, Normal ROM. No: Edema Neurological: Present: GCS=15, CN II-XII Intact, Speech Normal Skin: Present: Warm, Dry, Normal Color. No: Rashes Psychiatric: Present: Alert, Oriented x 3, Normal Insight, Normal Concentration Medical Decision Making ED Course and Treatment: 08/08/16 21:03 Impression: 41 year old female complaining of lower back pain. Plan: -- Labs -- Zofran -- Dilaudid -- Reassess and disposition Prior Visits: Notes and results from previous visits were reviewed. On 06/25/2016, pt was seen in the Emergency department for lower abdominal pain. Pt was d/c home. - Lab Interpretations Lab Results: 08/08/16 21:00 08/08/16 21:00 Lab Results 08/08/16 21:00: WBC 13.5 H, RBC 4.58, Hgb 14.0, Hct 40.2, MCV 87.8, MCH 30.6, MCHC 34.8, RDW 13.9, Plt Count 449, MPV 10.1 08/08/16 21:00: Sodium 137, Potassium 3.4 L, Chloride 102, Carbon Dioxide 27, Anion Gap 11, BUN 16, Creatinine 0.6, Est GFR ( Amer) > 60, Est GFR (Non- Af Amer) > 60, Random Glucose 209 H, Calcium 9.8, Total Bilirubin 0.4, AST 21, ALT 26, Alkaline Phosphatase 76, Total Protein 7.0, Albumin 3.9, Globulin 3.0, Albumin/Globulin Ratio 1.3 I have reviewed the lab results: Yes - RAD Interpretation Narrative RAD Interpretations (Text): CT Lumbar Spine, shows: Vertebrae: No acute findings. No acute fracture. There is SI joint sclerosis, most pronounced on the iliac side of the joint. No joint space erosions. Findings consistent with osteitis condensans ilii. Discs/spinal canal/neural foramina: No acute findings. No spinal canal stenosis. Soft tissues: No acute findings. IMPRESSION: No acute findings. Remainder as above. 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 - Medication Orders Current Medication Orders: Discontinued Medications Hydromorphone HCl (Dilaudid) 1 mg IVP STAT STA Stop: 08/08/16 21:08 Last Admin: 08/08/16 21:33 Dose: 1 mg Hydromorphone HCl (Dilaudid) 1 mg IVP STAT STA Stop: 08/08/16 23:56 Last Admin: 08/09/16 00:36 Dose: 1 mg Hydromorphone HCl (Dilaudid) 2 mg IVP STAT STA Stop: 08/09/16 03:12 Last Admin: 08/09/16 03:25 Dose: Hydromorphone HCl (Dilaudid) Confirm Administered Dose 2 mg .ROUTE .STK-MED ONE Stop: 08/09/16 03:15 Last Admin: 08/09/16 03:24 Dose: 2 mg Sodium Chloride (Sodium Chloride 0.9%) 1,000 mls @ 999 mls/hr IV .Q1H1M STA Stop: 08/09/16 04:13 Iohexol (Omnipaque 350 100 Ml) Confirm Administered Dose 350 mg .ROUTE .STK-MED ONE Stop: 08/09/16 03:04 Ondansetron HCl (Zofran Inj) 4 mg IVP ONCE ONE Stop: 08/08/16 21:08 Last Admin: 08/08/16 21:33 Dose: 4 mg ED OBSERVATION Date of observation admission: 08/08/16 Time of observation admission: 21:05 - Observation admission statement Patient is being placed in observation because:: back pain - Goals of Observation Goals of observation are:: treat and determine etiology of symptoms - Progress Note Progress Note: 08/09/16 23:55 RN reports pt still experiencing lower back pain. Dilaudid ordered. 08/09/16 01:15 CT Lumbar Spine ordered. Vital signs stable. 08/09/16 03:[address] scan. RN reports pt is c/o back pain. Dilaudid ordered. 08/09/16 04:[address] Lumbar Spine, shows: No acute findings. Remainder as above. 08/09/16 04:[address] Gunderson, who is aware and agrees with plan. Accepts pt in to hospitalist service. Pt will go to [facility] observation for intractable back pain. vice president tax notified. - Scribe Statement The provider has reviewed the documentation as recorded by the Leatha Yarbrough Provider Attestation: All medical record entries made by the Leatha were at my direction and personally dictated by me. I have reviewed the chart and agree that the record accurately reflects my personal performance of the history, physical exam, medical decision making, and the department course for this patient. I have also personally directed, reviewed, and agree with the discharge instructions and disposition. Disposition/Present on Arrival - Present on Arrival Any Indicators Present on Arrival: No History of DVT/PE: No History of Uncontrolled Diabetes: No Urinary Catheter: No History of Decub. Ulcer: No History Surgical Site Infection Following: None - Disposition Have Diagnosis and Disposition been Completed?: Yes Diagnosis: Intractable low back pain Disposition: HOSPITALIZED Disposition Time: 04:38 Patient Plan: Observation Condition: STABLE
[2016-08-08] MEDS ORDERED: HYDROmorphone 1 mg/ml ISec IVP STA ×2 (21:07→23:55)
[2016-08-08 21:17] LABS: HEMATOCRIT 40.2 % (36.0-48.0); MEAN CELL VOLUME 87.8 fL (80.0-105.0); MEAN CORPUSCULAR HEMOGLOBIN 30.6 pg (25.0-35.0); MEAN CORPUSCULAR HGB CONC 34.8 g/dl (31.0-37.0); MEAN PLATELET VOLUME 10.1 fl (7.0-11.0); RED CELL DISTRIBUTION WIDTH 13.9 % (11.5-14.5); WHITE BLOOD COUNT 13.5 10^3/ul (4.5-11.0)
[2016-08-08 21:33] LABS: ALB/GLOB RATIO 1.3 (1.1-1.8); ALKALINE PHOSPHATASE 76 U/L (38-133); ALT/SGPT 26 U/L (7-56); AST/SGOT 21 U/L (15-39); BILIRUBIN,TOTAL 0.4 mg/dL (0.2-1.3); BLOOD UREA NITROGEN 16 mg/dL (7-21); CALCIUM 9.8 mg/dL (8.4-10.5); CARBON DIOXIDE 27 mmol/L (21-33); CHLORIDE 102 mmol/L (98-107); GFR AFRICAN-AMERICAN > 60; GLUCOSE,RANDOM 209 mg/dL (70-110); POTASSIUM 3.4 mmol/L (3.6-5.0); SODIUM 137 mmol/L (132-148)
[2016-08-09] MEDS ORDERED: Iohexol 350 MG/100 ML VIAL ONE (03:03)
[2016-08-09] MEDS ORDERED: HYDROmorphone 2 mg/ml ISec IVP STA (03:11)
[2016-08-09] MEDS ORDERED: Sodium Chloride 0.9% 1,000 ML IV STA (03:13)
[2016-08-09] MEDS ORDERED: HYDROmorphone 2 mg/ml ISec ONE (03:14)
--- NOTE | 2016-08-09 04:43 | CP.PCM.HP ---
History of Present Illness - History of Present Illness History of Present Illness: CC: Back Pain This is a 41yo F w/ a PMHx of back pain, insulin dependent DM, previous ectopic , who is presenting to the hospital with intractable back pain. States she was trying to bear out her back pain at home but just couldn't handle it anymore. She denies any bladder or bowel incontinence. Patient normally walks with a cane at baseline due to the back pain. She denies fevers/chills, VASQUEZ, CP, SOB, abdominal pain, N/V/D, dysuria/freq/urg, or lower extremity pain/swelling. Denies pain that is shooting past the knees. PMhx: nsulin dependent DM, previous ectopic back pain Allergies: None FamHx: Mom with unknown cancer, dad with alcoholism Surgeries: Ectopic Meds: Insulin, Motrin for the pain Present on Admission - Present on Admission Any Indicators Present on Admission: No History of DVT/PE: No History of Uncontrolled Diabetes: Yes Urinary Catheter: No Decubitus Ulcer Present: No Past Patient History - Infectious Disease Hx of Infectious Diseases: None - Tetanus Immunizations Tetanus Immunization: Unknown - Past Medical History & Family History Past Medical History?: No - Past Social History Smoking Status: Heavy Smoker > 10 Cigarettes Daily - CARDIAC Hx Cardiac Disorders: No Hx Cardia Arrhythmia: No Hx Congestive Heart Failure: No Hx Hypertension: No Hx Mitral Valve Prolapse: No Hx Pacemaker: No Hx Peripheral Edema: No - PULMONARY Hx Respiratory Disorders: Yes Hx Asthma: Yes (child) Hx Bronchitis: No Hx Chronic Obstructive Pulmonary Disease (COPD): No Hx Emphysema: No Hx Pneumonia: No Hx Sleep Apnea: No - NEUROLOGICAL Hx Alzheimer's Disease: No Hx Dementia: No Hx Migraine: Yes Hx Parkinson's Disease: No Hx Seizures: Yes (child) Hx Transient Ischemic Attacks (TIA): No - HEENT Hx HEENT Problems: No - RENAL Hx Chronic Kidney Disease: No Hx Kidney Stones: No - ENDOCRINE/METABOLIC Hx Hyperthyroidism: No Hx Hypothyroidism: Yes - HEMATOLOGICAL/ONCOLOGICAL Hx Anemia: No Hx Sickle Cell Disease: No - INTEGUMENTARY Hx Dermatological Problems: No - MUSCULOSKELETAL/RHEUMATOLOGICAL Hx Musculoskeletal Disorders: Yes Hx Arthritis: No Hx Fractures: No Hx Osteoporosis: No - GASTROINTESTINAL Hx Crohn's Disease: Yes (dc 03/2014) Hx Diverticulitis: (denius) Hx Gall Bladder Disease: No Hx Pancreatitis: No - GENITOURINARY/GYNECOLOGICAL Hx Sexually Transmitted Disorders: No - PSYCHIATRIC Hx Anxiety: Yes Hx Bipolar Disorder: No Hx Depression: Yes Hx Post Traumatic Stress Disorder: No Hx Schizophrenia: No Hx Substance Use: No - SURGICAL HISTORY Hx Appendectomy: No Hx Cholecystectomy: No Hx Coronary Stent: No - ANESTHESIA Hx Anesthesia: No Meds Allergies/Adverse Reactions: Allergies Allergy/AdvReac Type Severity Reaction Status Date / Time No Known Allergies Allergy Verified 08/08/16 20:53 Physical Exam - Constitutional Appears: Non-toxic Additional comments: in obvious discomfort in the bed, wrteching around the bed in pain but able to answer all questions appropriately - Head Exam Head Exam: ATRAUMATIC - Eye Exam Eye Exam: EOMI - ENT Exam ENT Exam: Mucous Membranes Moist - Neck Exam Neck exam: Positive for: Normal Inspection - Respiratory Exam Respiratory Exam: Clear to Auscultation Bilateral, NORMAL BREATHING PATTERN. absent: Rales, Rhonchi, Wheezes - Cardiovascular Exam Cardiovascular Exam: REGULAR RHYTHM - GI/Abdominal Exam GI & Abdominal Exam: Normal Bowel Sounds, Soft - Rectal Exam Rectal Exam: Deferred - Extremities Exam Extremities exam: Positive for: full ROM, normal inspection. Negative for: calf tenderness Additional comments: negative straight leg test - Back Exam Back exam: NORMAL INSPECTION. absent: CVA tenderness (L), CVA tenderness (R) - Neurological Exam Neurological exam: Alert, Oriented x3 - Psychiatric Exam Psychiatric exam: Normal Mood Results - Vital Signs Recent Vital Signs: Last Vital Signs Temp 98.2 F 08/08/16 20:56 Pulse 68 08/09/16 00:37 Resp 18 08/09/16 00:37 BP 136/81 08/08/16 20:56 Pulse Ox 95 08/09/16 00:37 - Labs Result Diagrams: 08/08/16 21:00 08/08/16 21:00 Assessment & Plan - Assessment and Plan (Free Text) Assessment: 41yo F admitted for intractable back pain Intractable back pain CT Scan showed Osteitis condensans ilii which is a benign condition more common in obese multiparous females. Low back pain radiating to buttocks is a common feature; patient has been 3 times now -Tordol and Ibuprofen -Valium, Cyclobenzaprine, and oxycodone -patient needs pain management doctor and MRI of back at some point -no warning signs Diabetes -c/w home insulin and insulin sliding scale Proph Pepcid SCD Heart Healthy Diet Case discussed with Dr. Jalyn Thao Decision To Admit - Pt Status Changed To: Hospital Disposition Of: Observation - . Bed Request Type: Med/Surg Admitting Physician: Ramesh Gunderson MD
[2016-08-09] MEDS ORDERED: Albuterol 0.083% Inhal Sol (2.5 mg/3 mL) UD IH PRN (04:44)
[2016-08-09] MEDS ORDERED: Oxycodone/Acetaminophen 5/325 mg Tab PO PRN (04:45)
[2016-08-09] MEDS ORDERED: Potassium Chloride 20 mEq ER Tab PO STA (06:28)
[2016-08-09 07:18] LABS: URINE APPEARANCE SL CLOUDY (CLEAR); URINE BILIRUBIN NEGATIVE (NEGATIVE); URINE BLOOD NEGATIVE (NEGATIVE); URINE COLOR YELLOW (YELLOW); URINE GLUCOSE (UA) 100 mg/dL (NEGATIVE); URINE KETONE TRACE mg/dL (NEGATIVE); URINE LEUKOCYTE ESTERASE NEGATIVE Leu/uL (NEGATIVE); URINE PROTEIN TRACE mg/dL (<30 mg/dL); URINE UROBILINOGEN 0.2 E.U./dL (<1 E.U./dL)
[2016-08-09 07:43] LABS: URINE RBC NEGATIVE /hpf (0-2)
[2016-08-09 07:44] LABS: URINE BACTERIA MANY (NEG); URINE WBC 0 - 2 /hpf (0-6)
[2016-08-09 07:45] LABS: URINE AMORPHOUS SEDIMENT FEW
[2016-08-09] MEDS: Insulin Lispro (HUMAlog) HIGH Coverage SC SCH ×4 (08:49→22:15)
--- NOTE | 2016-08-09 10:48 | CT ---
CT lumbar spine with IV contrast Indication: Back pain Comparison: CT Abd and pelvis with IV contrast performed 06/25/16 Technique: Axial images of the lumbar spine were provided following the administration of 100 mL Omnipaque 350. Sagittal and coronal reformatted images were generated and reviewed. This CT exam was performed using 1 or more of the falling dose reduction techniques: Automated exposure control, adjustment of the MAA and/or kV according to patient size, and/or use of iterative reconstruction technique. Total exam DLP: 658.92 MGy-cm Findings: Vertebral body heights appear within normal limits. Alignment appears satisfactory. No acute fracture or subluxation identified. SI joint sclerosis, most pronounced in the iliac side of the joint. Findings appear consistent with osteitis condesams ilii. Paraspinal soft tissues appear unremarkable. Limited visualization of the intra-abdominal and intrapelvic contents demonstrates partially imaged 13 mm right renal low-density lesion, incompletely characterized on this study. Impression: No acute fracture or subluxation identified. Preliminary impression was provided by virtual radiologic.
[2016-08-09] MEDS: Oxycodone/Acetaminophen 10/325 mg Tab PO PRN ×3 (13:07→22:23)
[2016-08-09] MEDS: Lidocaine 5% Patch TD SCH (13:07)
[2016-08-09 13:14] VITALS: RESP 18; BMI 25.4
[2016-08-09] MEDS ORDERED: Insulin Lispro 1 UNITS/0.01 ML SC STA (20:22)
[2016-08-09] MEDS ORDERED: Insulin Detemir 100 units/ml Vial (Levemir) SC SCH (22:00)
[2016-08-10 06:34] VITALS: BP 109/66; PULSE 56; TEMP 97.4; O2SAT 99
[2016-08-10] MEDS: Lidocaine 5% Patch TD SCH (10:06)
[2016-08-10] MEDS: Insulin Lispro (HUMAlog) HIGH Coverage SC SCH (10:07)
[2016-08-10] MEDS ORDERED: Insulin Human NPH 1 UNITS/0.01 ML SC SCH (11:30)
[2016-08-10] MEDS ORDERED: Insulin Lispro 1 UNITS/0.01 ML SC SCH (11:30)
[2016-08-10] MEDS: Oxycodone/Acetaminophen 10/325 mg Tab PO PRN (11:44)
--- NOTE | 2016-08-10 14:13 | CP.PCM.DIS ---
Provider - Provider Date of Admission: 08/08/16 21:05 Attending physician: Opal Bueno MD Primary care physician: Kelli Van MD Hospital Course - Lab Results Lab Results: Most Recent Lab Values WBC 13.5 10^3/ul (4.5-11.0) H 08/08/16 21:00 RBC 4.58 10^6/uL (3.5-6.1) 08/08/16 21:00 Hgb 14.0 gm/dL (12.0-16.0) 08/08/16 21:00 Hct 40.2 % (36.0-48.0) 08/08/16 21:00 MCV 87.8 fL (80.0-105.0) 08/08/16 21:00 MCH 30.6 pg (25.0-35.0) 08/08/16 21:00 MCHC 34.8 g/dl (31.0-37.0) 08/08/16 21:00 RDW 13.9 % (11.5-14.5) 08/08/16 21:00 Plt Count 449 10^3/uL (120.0-450.0) 08/08/16 21:00 MPV 10.1 fl (7.0-11.0) 08/08/16 21:00 Sodium 137 mmol/L (132-148) 08/08/16 21:00 Potassium 3.4 mmol/L (3.6-5.0) L 08/08/16 21:00 Chloride 102 mmol/L (98-107) 08/08/16 21:00 Carbon Dioxide 27 mmol/L (21-33) 08/08/16 21:00 Anion Gap 11 (10-20) 08/08/16 21:00 BUN 16 mg/dL (7-21) 08/08/16 21:00 Creatinine 0.6 mg/dL (0.5-1.4) 08/08/16 21:00 Est GFR ( Amer) > 60 08/08/16 21:00 Est GFR (Non-Af Amer) > 60 08/08/16 21:00 Random Glucose 209 mg/dL (70-110) H 08/08/16 21:00 Calcium 9.8 mg/dL (8.4-10.5) 08/08/16 21:00 Total Bilirubin 0.4 mg/dL (0.2-1.3) 08/08/16 21:00 AST 21 U/L (15-39) 08/08/16 21:00 ALT 26 U/L (7-56) 08/08/16 21:00 Alkaline Phosphatase 76 U/L (38-133) 08/08/16 21:00 Total Protein 7.0 g/dL (5.8-8.3) 08/08/16 21:00 Albumin 3.9 g/dL (3.0-4.8) 08/08/16 21:00 Globulin 3.0 gm/dL 08/08/16 21:00 Albumin/Globulin Ratio 1.3 (1.1-1.8) 08/08/16 21:00 Urine Color Yellow (YELLOW) 08/09/16 06:30 Urine Appearance Sl cloudy (CLEAR) 08/09/16 06:30 Urine pH 6.0 (4.7-8.0) 08/09/16 06:30 Ur Specific [place] 1.025 (1.005-1.035) 08/09/16 06:30 Urine Protein Trace mg/dL (<30 mg/dL) H 08/09/16 06:30 Urine Glucose (UA) 100 mg/dL (NEGATIVE) H 08/09/16 06:30 Urine Ketones Trace mg/dL (NEGATIVE) H 08/09/16 06:30 Urine Blood Negative (NEGATIVE) 08/09/16 06:30 Urine Nitrate Negative (NEGATIVE) 08/09/16 06:30 Urine Bilirubin Negative (NEGATIVE) 08/09/16 06:30 Urine Urobilinogen 0.2 E.U./dL (<1 E.U./dL) 08/09/16 06:30 Ur Leukocyte Esterase Negative [place]/uL (NEGATIVE) 08/09/16 06:30 Urine RBC Negative /hpf (0-2) 08/09/16 06:30 Urine WBC 0 - 2 /hpf (0-6) 08/09/16 06:30 Ur Epithelial Cells 4 - 5 /hpf (0-5) 08/09/16 06:30 Amorphous Sediment Few 08/09/16 06:30 Urine Bacteria Many (NEG) 08/09/16 06:30 Urine Other Uyeast 08/09/16 06:30 Urine HCG, Qual Negative (NEGATIVE) 08/09/16 14:10 Discharge Exam - Head Exam Head Exam: ATRAUMATIC Discharge Plan - Discharge Medications Prescriptions: Lidocaine 5% [Lidoderm] 1 ea TD DAILY #15 patch Oxycodone HCl/Acetaminophen [Percocet 10-325 mg Tablet] 1 each PO Q4H PRN #15 tablet PRN Reason: Pain, Severe (8-10) - Follow Up Plan Condition: STABLE Disposition: HOME/ ROUTINE Instructions: Back Pain (GEN) Additional Instructions: 1. Pt is to fu with PMD Dr. Van within 1 week 2. Pt is to fu with Pain management as previously scheduled for this [facility] Dr. Grace 3. Pt is encouraged to ambulate and refrain from prolonged bedrest 4. Pt is encouraged to follow with PT recommendations 5. Pt is welcomed to return to [facility] ED if develop any acute symptoms. Referrals: Kelli Van MD [Primary Care Provider] -
== END 2016-08-10 16:02 | disposition home or self-care (01) ==
LOC: ED 20:45 → EROBSV 21:05 → ERH 08-09 05:16 → 5RNO 08-09 06:48
PROVIDERS: ADMIT Emergency Medicine; ATTEND Internal Medicine
DX: M85.30 Osteitis condensans, unspecified site (principal); E11.40 Type 2 diabetes mellitus with diabetic neuropathy, unspecified; E03.9 Hypothyroidism, unspecified; J45.909 Unspecified asthma, uncomplicated; K50.90 Crohn's disease, unspecified, without complications; Z79.4 Long term (current) use of insulin; F41.9 Anxiety disorder, unspecified; F32.89 Other specified depressive episodes; F17.210 Nicotine dependence, cigarettes, uncomplicated; R40.2412 Glasgow coma scale score 13-15, at arrival to emergency department
CPT/HCPCS: 72132; 80053; 81001; 84703; 85027; 96374; 96375; 96376; 97116; 97161; 99285; G0378; G8978; G8979; J1170; J1885; J2405; J7040; Q9967

== ENCOUNTER 2016-09-06 16:27 | Emergency (ER) | payer MEDICAID ==
[2016-09-06 16:28] VITALS: BMI 25.4
[2016-09-06 16:36] VITALS: RESP 18; TEMP 98.1
--- NOTE | 2016-09-06 16:49 | ED PDOC ---
Arrival/HPI - General Chief Complaint: Altered Mental Status Time Seen by Provider: 09/06/16 16:29 Historian: Patient - History of Present Illness Narrative History of Present Illness (Text): 09/06/16 16:51 A 41 year old female, whose past medical history includes chronic back pain, diabetes, neuropathy, hypothyroidism, laprascopic left salpingectomy, anxiety, and insulin dependent diabetes is brought to the Emergency department via EMS complaining of low blood sugar. EMS measured blood sugar to be 29. The patient reports she took her insulin today, but does not recall if she ate anything today. She denies any fever, cough, dysuria, hematuria, vomiting, or any other complaints at this time. PMD: Dr. Gerald Van Time/Duration: 4-6 hours Symptom Onset: Sudden Symptom Course: Unchanged Activities at Onset: Rest Context: Home Past Medical History - Provider Review Nursing Documentation Reviewed: Yes - Infectious Disease Hx of Infectious Diseases: None - Tetanus Immunization Tetanus Immunization: Unknown - Cardiac Hx Cardiac Disorders: No Hx Congestive Heart Failure: No Hx Hypertension: No - Pulmonary Hx Chronic Obstructive Pulmonary Disease (COPD): No - Neurological Hx Alzheimer's Disease: No Hx Dementia: No Hx Migraine: Yes Hx Parkinson's Disease: No Hx Seizures: Yes (child) Hx Transient Ischemic Attacks (TIA): No - HEENT Hx HEENT Disorder: No - Renal Hx Renal Disorder: No Hx Kidney Stones: No - Endocrine/Metabolic Hx Hypothyroidism: Yes - Hematological/Oncological Hx Anemia: No Hx Sickle Cell Disease: No - Integumentary Hx Dermatological Disorder: No - Musculoskeletal/Rheumatological Hx Falls: No - Gastrointestinal Hx Crohn's Disease: Yes (dc 03/2014) Hx Diverticulitis: (denius) Hx Gall Bladder Disease: No Hx Pancreatitis: No - Genitourinary/Gynecological Hx Sexually Transmitted Diseases: No - Psychiatric Hx Anxiety: Yes Hx Bipolar Disorder: No Hx Depression: Yes Hx Post Traumatic Stress Disorder: No Hx Schizophrenia: No Hx Substance Use: No - Past Surgical History Past Surgical History: No Previous - Surgical History Hx Appendectomy: No Hx Cholecystectomy: No Hx Coronary Stent: No Other/Comment: etopic pregnacy - Anesthesia Hx Anesthesia: No - Suicidal Assessment Feels Threatened In Home Enviroment: No Family/Social History - Physician Review Nursing Documentation Reviewed: Yes Family/Social History: Unknown Family HX Smoking Status: Heavy Smoker > 10 Cigarettes Daily Hx Alcohol Use: No Hx Substance Use: No Hx Substance Use Treatment: No Allergies/Home Meds Allergies/Adverse Reactions: Allergies No Known Allergies Allergy (Verified 08/08/16 20:53) Home Medications: Home Meds Medication Instructions Recorded Confirmed Insulin Lispro [humALOG] 0 units SC AC 06/15/16 09/06/16 Review of Systems - Physician Review All systems were reviewed & negative as marked: Yes - Review of Systems Constitutional: absent: Fevers Respiratory: absent: Cough Gastrointestinal: absent: Vomiting Genitourinary Female: absent: Dysuria, Hematuria Physical Exam Vital Signs Reviewed: Yes Vital Signs Temp Pulse Resp BP Pulse Ox 09/06/16 18:46 90 18 112/69 95 09/06/16 16:35 98.1 F 100 H 18 119/75 97 Temperature: Afebrile Blood Pressure: Normal Pulse: Tachycardic Respiratory Rate: Normal Appearance: Positive for: Well-Appearing, Non-Toxic, Comfortable Pain Distress: None Mental Status: Positive for: Alert and Oriented X 3 Finger Stick Blood Glucose: 160 - Systems Exam Head: Present: Atraumatic, Normocephalic Pupils: Present: PERRL Extroacular Muscles: Present: EOMI Conjunctiva: Present: Normal Mouth: Present: Moist Mucous Membranes Neck: Present: Normal Range of Motion Respiratory/Chest: Present: Clear to Auscultation, Good Air Exchange. No: Respiratory Distress, Accessory Muscle Use Cardiovascular: Present: Regular Rate and Rhythm, Normal S1, S2. No: Murmurs Abdomen: Present: Normal Bowel Sounds. No: Tenderness, Distention, Peritoneal Signs Back: Present: Normal Inspection Upper Extremity: Present: Normal Inspection. No: Cyanosis, Edema Lower Extremity: Present: Normal Inspection. No: Edema Neurological: Present: GCS=15, CN II-XII Intact, Speech Normal Skin: Present: Warm, Dry, Normal Color. No: Rashes Psychiatric: Present: Alert, Oriented x 3, Normal Insight, Normal Concentration Medical Decision Making ED Course and Treatment: 09/06/16 16:47 Impression: a 41 year old female complaining of low blood sugar. Differential Diagnosis included but are not limited to: hypoglycemia vs. UTI Plan: -- Labs -- Pregancy test -- Saline lock -- Urinalysis -- Reassess and disposition Prior Visits: Notes and results from previous visits were reviewed. Patient was last seen on 08/08/16 for back pain and was hospitalized. Progress Notes: Chest X-ray Accordion Repairer : Dr. Jordan, José Antonio HOLLOWAY Report Date : 09/06/2016 17:37:35 COMPARISON:Comparison made with prior radiographs 12/28/2015 FINDINGS: LUNGS:Suspect minor bibasilar atelectasis. PLEURA:No significant pleural effusion identified, no pneumothorax apparent. CARDIOVASCULAR:Normal. OSSEOUS STRUCTURES:No significant abnormalities. VISUALIZED UPPER ABDOMEN:Normal. OTHER FINDINGS:None. IMPRESSION: Minor bibasilar atelectasis. Suspected minor - Lab Interpretations Lab Results: 09/06/16 17:15 09/06/16 17:15 Lab Results 09/06/16 18:21: POC Glucose (mg/dL) 157 H 09/06/16 17:15: Sodium 139, Potassium 3.4 L, Chloride 102, Carbon Dioxide 27, Anion Gap 13, BUN 19, Creatinine 0.8, Est GFR ( Amer) > 60, Est GFR (Non- Af Amer) > 60, Random Glucose 31 L* D, Calcium 9.4, Total Bilirubin 0.4, AST 27 , ALT 18, Alkaline Phosphatase 75, Total Protein 7.4, Albumin 4.2, Globulin 3.2 , Albumin/Globulin Ratio 1.3 09/06/16 17:15: WBC 14.8 H, RBC 4.19, Hgb 12.6, Hct 37.2, MCV 88.8, MCH 30.1, MCHC 33.9, RDW 14.0, Plt Count 359, MPV 10.3, Gran % 73.5 H, Lymph % (Auto) 19.4 L, [place] % (Auto) 4.4, Eos % (Auto) 2.4, Baso % (Auto) 0.3, Gran # 10.86 H, Lymph # 2.9, [place] # 0.7 H, Eos # 0.4, Baso # 0.05 09/06/16 16:55: Urine Opiates Screen Positive H, Urine Methadone Screen Negative , Ur Barbiturates Screen Negative, Ur Phencyclidine Scrn Negative, Ur Amphetamines Screen Negative, U Benzodiazepines Scrn Negative, U Oth Cocaine Metabols Negative, U Cannabinoids Screen Positive H 09/06/16 16:31: POC Glucose (mg/dL) 160 H I have reviewed the lab results: Yes - RAD Interpretation Radiology Orders: 09/06/16 16:40 CHEST PORTABLE [RAD] Stat - Scribe Statement The provider has reviewed the documentation as recorded by the Leatha Garcia Provider Scribe Attestation: All medical record entries made by the Scribe were at my direction and personally dictated by me. I have reviewed the chart and agree that the record accurately reflects my personal performance of the history, physical exam, medical decision making, and the department course for this patient. I have also personally directed, reviewed, and agree with the discharge instructions and disposition. Disposition/Present on Arrival - Present on Arrival Any Indicators Present on Arrival: Yes History of DVT/PE: No History of Uncontrolled Diabetes: Yes Urinary Catheter: No History of Decub. Ulcer: No History Surgical Site Infection Following: None - Disposition Have Diagnosis and Disposition been Completed?: Yes Diagnosis: Diabetes mellitus, Hypoglycemia Disposition: HOME/ ROUTINE Disposition Time: 18:35 Condition: IMPROVED Discharge Instructions (ExitCare): Diabetic Hypoglycemia (ED) Additional Instructions: Thank you for letting us take care of you today. Your provider was Dr. To. You were treated for low blood sugar. The emergency medical care you received today was directed at your acute symptoms. If you were prescribed any medication, please fill it and take as directed. It may take several days for your symptoms to resolve. Return to the Emergency Department if your symptoms worsen, do not improve, or if you have any other problems. Please contact your doctor or call one of the physicians/clinics you have been referred to that are listed on the Patient Visit Information form that is included in your discharge packet. Bring any paperwork you were given at discharge with you along with any medications you are taking to your follow up visit. Our treatment cannot replace ongoing medical care by a primary care provider (PCP) outside of the emergency department. Thank you for allowing the [facility] team to be part of your care today. Follow up with your doctor in 2-3 days for re-evaluation. Eat regularly to avoid low blood sugar. Referrals: Kelli Van MD [Primary Care Provider] - Follow up with primary
--- NOTE | 2016-09-06 17:39 | RAD ---
HISTORY: r/o infiltrate COMPARISON: Comparison made with prior radiographs 12/28/2015 FINDINGS: LUNGS: Suspect minor bibasilar atelectasis. PLEURA: No significant pleural effusion identified, no pneumothorax apparent. CARDIOVASCULAR: Normal. OSSEOUS STRUCTURES: No significant abnormalities. VISUALIZED UPPER ABDOMEN: Normal. OTHER FINDINGS: None. IMPRESSION: Minor bibasilar atelectasis. Suspected minor
[2016-09-06 18:01] LABS: BARBITURATES, UR NEGATIVE (NEGATIVE); BENZODIAZEPINES, UR NEGATIVE (NEGATIVE); OPIATES, UR POSITIVE (NEGATIVE); PHENCYCLIDINE, UR NEGATIVE (NEGATIVE)
[2016-09-06 18:02] LABS: BASO # 0.05 K/mm3 (0.0-2.0); BASO % 0.3 % (0.0-3.0); EOS # 0.4 (0.0-0.7); EOS % 2.4 % (1.5-5.0); GRAN # 10.86 (1.4-6.5); GRAN % 73.5 % (50.0-68.0); HEMOGLOBIN 12.6 gm/dL (12.0-16.0); LYMPH # 2.9 (1.2-3.4); LYMPH % 19.4 % (22.0-35.0); MEAN CELL VOLUME 88.8 fL (80.0-105.0); MEAN CORPUSCULAR HEMOGLOBIN 30.1 pg (25.0-35.0); MEAN CORPUSCULAR HGB CONC 33.9 g/dl (31.0-37.0); MEAN PLATELET VOLUME 10.3 fl (7.0-11.0); MONO # 0.7 (0.1-0.6); MONO % 4.4 % (1.0-6.0); PLATELET COUNT 359 10^3/uL (120.0-450.0); RBC 4.19 10^6/uL (3.5-6.1); WHITE BLOOD COUNT 14.8 10^3/ul (4.5-11.0)
[2016-09-06 18:04] LABS: ALB/GLOB RATIO 1.3 (1.1-1.8); ALBUMIN 4.2 g/dL (3.0-4.8); ALT/SGPT 18 U/L (7-56); AST/SGOT 27 U/L (15-39); BLOOD UREA NITROGEN 19 mg/dL (7-21); CALCIUM 9.4 mg/dL (8.4-10.5); GFR AFRICAN-AMERICAN > 60; GFR NON-AFRICAN AMERICAN > 60
[2016-09-06 18:47] VITALS: BP 112/69; PULSE 90; O2SAT 95
== END 2016-09-06 19:03 | disposition home or self-care (01) ==
LOC: ED 16:27
DX: E11.649 Type 2 diabetes mellitus with hypoglycemia without coma (principal); Z79.4 Long term (current) use of insulin

== ENCOUNTER 2016-12-08 20:16 | Emergency (ER) | payer MEDICAID ==
[2016-12-08 20:23] VITALS: BMI 25.1
[2016-12-08 20:29] VITALS: BP 164/80; PULSE 90; RESP 23; TEMP 98.9; O2SAT 99
[2016-12-08] MEDS ORDERED: Lidocaine 5% Patch TD STA (20:44)
--- NOTE | 2016-12-08 21:01 | ED PDOC ---
Arrival/HPI - General Historian: Patient - History of Present Illness Time/Duration: < week Symptom Onset: Sudden Symptom Course: Worsening Quality: Aching, Stabbing, Throbbing Severity Level: 10 Activities at Onset: Rest, Light Context: Home - General Chief Complaint: Back Pain Time Seen by Provider: 12/08/16 20:34 - History of Present Illness Narrative History of Present Illness (Text): 12/08/16 20:51 Ms. Brewster is a 41 year old female with a past medical history significant for OCI, chronic back pain, IDDM and ectopic who presents to the [facility] emergency department for an acute exacerbation of her chronic back pain. Patient states that 3 days ago she was resting at home when she suddenly felt pain radiating from her right lumbar paraspinal region to her right foot. She denies any inciting event or trauma at the onset of the pain. She denies any alleviating/aggravating factors and states that walking around and double her usual dose of percocet (10-325) did not provide any relief. She denies fever, chills, headache, changes in her vision, focal weakness, seizure, gait disturbance, bowel/bladder incontinence, neck pain, chest pain, palpitations, shortness of breath, cough, abdominal pain, N/V, diarrhea, constipation or any burning with urination. (ANGÉLICA BEAULIEU) Past Medical History - Provider Review Nursing Documentation Reviewed: Yes - Travel History Have you recently traveled outside [place] w/in the past 3 mons?: No - Past History Past History: Non-Contributing - Infectious Disease Hx of Infectious Diseases: None - Tetanus Immunization Tetanus Immunization: Unknown - Cardiac Hx Cardiac Disorders: No - Pulmonary Hx Respiratory Disorders: No - Neurological Hx Neurological Disorder: Yes Hx Migraine: Yes Hx Seizures: Yes (child) - HEENT Hx HEENT Disorder: No - Renal Hx Renal Disorder: No - Endocrine/Metabolic Hx Endocrine Disorders: Yes Hx Diabetes Mellitus Type 2: Yes Hx Hypothyroidism: Yes - Hematological/Oncological Hx Blood Disorders: No - Integumentary Hx Dermatological Disorder: No - Musculoskeletal/Rheumatological Hx Musculoskeletal Disorders: Yes Hx Back Pain: Yes Other/Comment: sciatica - Gastrointestinal Hx Gastrointestinal Disorders: Yes Hx Crohn's Disease: Yes (dc 03/2014) Hx Diverticulitis: (denius) - Genitourinary/Gynecological Hx Genitourinary Disorders: No - Psychiatric Hx Psychophysiologic Disorder: Yes Hx Anxiety: Yes Hx Depression: Yes Hx Substance Use: No - Past Surgical History Past Surgical History: No Previous - Surgical History Hx Tubal Ligation: Yes (Left Tubal Ligation May 2016) Other/Comment: etopic pregnacy May 2016 - Anesthesia Hx Anesthesia: No Hx Anesthesia Reactions: No Hx Malignant Hyperthermia: No - Suicidal Assessment Feels Threatened In Home Enviroment: No Family/Social History - Physician Review Nursing Documentation Reviewed: Yes Family/Social History: No Known Family HX Smoking Status: Heavy Smoker > 10 Cigarettes Daily Hx Alcohol Use: No Hx Substance Use: No Hx Substance Use Treatment: No Allergies/Home Meds Allergies/Adverse Reactions: Allergies No Known Allergies Allergy (Verified 12/08/16 20:35) Home Medications: Home Meds Medication Instructions Recorded Confirmed Insulin Lispro [humALOG] 0 units SC AC 06/15/16 12/08/16 Review of Systems - Physician Review All systems were reviewed & negative as marked: Yes - Review of Systems Constitutional: Normal. absent: Fevers, Night Sweats Eyes: Normal. absent: Vision Changes ENT: Normal Respiratory: Normal. absent: SOB, Cough Cardiovascular: Normal. absent: Chest Pain, Palpitations Gastrointestinal: Normal. absent: Abdominal Pain, Constipation, Diarrhea, Nausea, Vomiting Genitourinary Female: Normal. absent: Dysuria Musculoskeletal: Back Pain (Right lumbar paraspinal region radiating to RLE). absent: Normal, Neck Pain, Joint Swelling Skin: Normal Neurological: Normal. absent: Headache, Dizziness, Focal Weakness, Gait Changes , Seizure Endocrine: Normal Hemo/Lymphatic: Normal Psychiatric: Normal Physical Exam Vital Signs Reviewed: Yes Temperature: Afebrile Blood Pressure: Hypertensive Pulse: Regular Respiratory Rate: Normal Appearance: Positive for: Well-Appearing, Non-Toxic, Uncomfortable Pain Distress: Moderate Mental Status: Positive for: Alert and Oriented X 3 - Systems Exam Head: Present: Atraumatic, Normocephalic Pupils: Present: PERRL Extroacular Muscles: Present: EOMI Conjunctiva: Present: Normal Mouth: Present: Moist Mucous Membranes Neck: Present: Normal Range of Motion, Trachea Midline. No: Meningeal Signs, MIDLINE TENDERNESS, Paraspinal Tenderness, JVD, Lymphadenopathy Respiratory/Chest: Present: Clear to Auscultation, Good Air Exchange. No: Respiratory Distress, Accessory Muscle Use Cardiovascular: Present: Regular Rate and Rhythm, Normal S1, S2. No: Murmurs Abdomen: Present: Normal Bowel Sounds. No: Tenderness, Distention, Peritoneal Signs Back: Present: Paraspinal Tenderness (Right lumbar paraspinal region L3-5), Pain with Leg Raise (Right side). No: Normal Inspection, CVA Tenderness, Midline Tenderness Upper Extremity: Present: Normal Inspection, Normal ROM, NORMAL PULSES, Neurovascularly Intact, Capillary Refill < 2s. No: Cyanosis, Edema Lower Extremity: Present: Normal Inspection, NORMAL PULSES, Normal ROM, Neurovascularly Intact, Capillary Refill < 2 s. No: Edema, CALF TENDERNESS, Eladio's Sign, Tenderness, Temperature Abnormalties Neurological: Present: GCS=15, CN II-XII Intact, Speech Normal Skin: Present: Warm, Dry, Normal Color. No: Rashes Lymphatic: No: Cervical Adenopathy Psychiatric: Present: Alert, Oriented x 3, Normal Insight, Normal Concentration Vital Signs Temp Pulse Resp BP Pulse Ox 12/08/16 20:29 98.9 F 90 23 164/80 H 99 Medical Decision Making ED Course and Treatment: Patient Seen With Resident: In agreement with resident note. Patient was seen and evaluated with resident, came up with plan and treatment together. (Александр Mclean) 12/08/16 21:04 Impression: 41 year old female with a past medical history significant for OCI, chronic back pain, IDDM and ectopic who presents to the [facility] emergency department for an acute exacerbation of her chronic back pain Plan: -Tylenol 975mg PO, Toradol 30mg IM, Flexeril 10mg, and Lidocaine 5% patch -Reassess and disposition Prior Visits: All results and records from previous visits reviewed. Patient was seen and evaluated for LBP in 07/201612/08/16 22:04 Patient requesting dilaudid and benadryl and refusing lab draws at this time, per nursing. Patient then eloped and was seen walking out of the ED. (ANGÉLICA BEAULIEU) - Medication Orders Current Medication Orders: Discontinued Medications Acetaminophen (Tylenol 325mg Tab) 975 mg PO STAT STA Stop: 12/08/16 20:45 Last Admin: 12/08/16 21:11 Dose: 975 mg MAR Pain/Vitals Document 12/08/16 21:11 OCS (Rec: 12/08/16 21:13 OCS [id number]) Pain Reassessment Is This A Pain ReAssessment? Yes Sleep Is patient sleeping during reassessment? No Presence of Pain Presence of Pain Yes Pain Scale Used Pain Scale Used Numeric Cyclobenzaprine HCl (Flexeril) 10 mg PO STAT STA Stop: 12/08/16 20:45 Last Admin: 12/08/16 21:09 Dose: 10 mg Ketorolac Tromethamine (Toradol) 60 mg IM STAT STA Stop: 12/08/16 20:45 Last Admin: 12/08/16 21:09 Dose: 60 mg MAR Pain Assessment Document 12/08/16 21:09 [facility] (Rec: 12/08/16 21:11 [id number] Pain Reassessment Is this a pain reassessment? Yes Sleep Is patient sleeping during reassessment? No Presence of Pain Presence of Pain Yes Pain Scale Used Pain Scale Used Numeric Location Left, Right or Bilateral Right Upper or Lower Lower Pain Location Body Site Thigh Leg Foot Description Description Constant Intensity of Pain at present 10 Pain Behavior Moaning Irritability IM Administration Charges Document 12/08/16 21:09 [facility] (Rec: 12/08/16 21:11 [id number]) Injection Site MAR Injection Site Left Deltoid Charges for Administration # of IM Administrations 1 Lidocaine (Lidoderm) 1 ea TD STAT STA Stop: 12/08/16 20:45 Last Admin: 12/08/16 21:09 Dose: 1 ea MAR Transdermal Patch Site Document 12/08/16 21:09 [facility] (Rec: 12/08/16 21:09 [id number]) Transdermal Patch Site Transdermal Patch Site Right Thigh Disposition/Present on Arrival - Present on Arrival Any Indicators Present on Arrival: No History of DVT/PE: No History of Uncontrolled Diabetes: Yes Urinary Catheter: No History of Decub. Ulcer: No History Surgical Site Infection Following: None - Disposition Have Diagnosis and Disposition been Completed?: No Disposition Time: 22:04 - Disposition Diagnosis: Right-sided low back pain with sciatica Disposition: ELOPEMENT - ER ONLY Condition: UNKNOWN Referrals: Rylan Jaime MD [Primary Care Provider] - Follow up with primary Forms: [employer] ([place])
== END 2016-12-08 21:45 | disposition left against medical advice (07) ==
LOC: ED 20:16
DX: M54.41 Lumbago with sciatica, right side (principal); E03.9 Hypothyroidism, unspecified; E11.9 Type 2 diabetes mellitus without complications; Z79.4 Long term (current) use of insulin; F17.210 Nicotine dependence, cigarettes, uncomplicated; Z98.51 Tubal ligation status
CPT/HCPCS: 96372; 99282; J1885

== ENCOUNTER 2017-03-26 02:37 | Emergency (ER) | payer MEDICAID ==
[2017-03-26 02:38] VITALS: BMI 25.1
[2017-03-26 02:42] VITALS: BP 163/89; PULSE 101; RESP 18; TEMP 98.6; O2SAT 99
[2017-03-26] MEDS ORDERED: DiphenhydrAMINE 50 mg/ml Inj IM STA (03:07)
--- NOTE | 2017-03-26 03:07 | ED PDOC ---
Arrival/HPI - General Chief Complaint: Back Pain Time Seen by Provider: 03/26/17 02:52 Historian: Patient - History of Present Illness Narrative History of Present Illness (Text): 03/26/17 03:04 A 41 year old female, whose past medical history includes diabetes and back pain , presents to the emergency department complaining of back pain radiating down her right leg. The patient states that she had an MRI done last week which showed that she had a herniated disk and a pinched nerve. She notes that she saw her pain management doctor yesterday. She also notes that because of her pain she has been having difficulty voiding. The patient notes that she is on 10mg of Percocet twice a day, and 15 mg Morphine twice a day. The patient denies fevers, chills, headache, dizziness, chest pain, shortness of breath, dyspnea on exertion, cough, abdominal pain, nausea, vomiting, diarrhea, bowel changes, or any other complaint. Time/Duration: Other (This Morning) Symptom Onset: Sudden Symptom Course: Unchanged Activities at Onset: Rest, Light Context: Home Past Medical History - Provider Review Nursing Documentation Reviewed: Yes - Past History Past History: Non-Contributing - Infectious Disease Hx of Infectious Diseases: None - Tetanus Immunization Tetanus Immunization: Unknown - Cardiac Hx Cardiac Disorders: No - Pulmonary Hx Respiratory Disorders: No - Neurological Hx Neurological Disorder: Yes Hx Migraine: Yes Hx Seizures: Yes (child) - HEENT Hx HEENT Disorder: No - Renal Hx Renal Disorder: No - Endocrine/Metabolic Hx Endocrine Disorders: Yes Hx Diabetes Mellitus Type 2: Yes Hx Hypothyroidism: Yes - Hematological/Oncological Hx Blood Disorders: No - Integumentary Hx Dermatological Disorder: No - Musculoskeletal/Rheumatological Hx Musculoskeletal Disorders: Yes Hx Back Pain: Yes Other/Comment: sciatica - Gastrointestinal Hx Gastrointestinal Disorders: Yes Hx Crohn's Disease: Yes (dc 03/2014) Hx Diverticulitis: (denius) - Genitourinary/Gynecological Hx Genitourinary Disorders: No - Psychiatric Hx Psychophysiologic Disorder: Yes Hx Anxiety: Yes Hx Depression: Yes Hx Substance Use: No - Past Surgical History Past Surgical History: No Previous - Surgical History Hx Tubal Ligation: Yes (Left Tubal Ligation May 2016) Other/Comment: etopic pregnacy May 2016 - Anesthesia Hx Anesthesia: No Hx Anesthesia Reactions: No Hx Malignant Hyperthermia: No - Suicidal Assessment Feels Threatened In Home Enviroment: No Family/Social History - Physician Review Nursing Documentation Reviewed: Yes Family/Social History: No Known Family HX Smoking Status: Heavy Smoker > 10 Cigarettes Daily Hx Alcohol Use: No Hx Substance Use: No Hx Substance Use Treatment: No Allergies/Home Meds Allergies/Adverse Reactions: Allergies No Known Allergies Allergy (Verified 12/08/16 20:35) Home Medications: Home Meds Medication Instructions Recorded Confirmed Insulin Lispro [humALOG] 0 units SC AC 06/15/16 02/27/17 Review of Systems - Physician Review All systems were reviewed & negative as marked: Yes - Review of Systems Constitutional: absent: Fevers, Night Sweats Respiratory: absent: SOB, Cough Cardiovascular: absent: Chest Pain, YAP Gastrointestinal: absent: Abdominal Pain, Stool Changes, Diarrhea, Nausea, Vomiting Musculoskeletal: Back Pain. absent: Neck Pain Neurological: absent: Headache, Dizziness Physical Exam Vital Signs Reviewed: Yes Vital Signs Temp Pulse Resp BP Pulse Ox 03/26/17 02:40 98.6 F 101 H 18 163/89 H 99 Temperature: Afebrile Blood Pressure: Hypertensive Pulse: Tachycardic Respiratory Rate: Normal Appearance: Positive for: Non-Toxic Pain Distress: None Mental Status: Positive for: Alert and Oriented X 3, Agitated (Agitated. Squirming in bed. ) - Systems Exam Head: Present: Atraumatic, Normocephalic Pupils: Present: PERRL Extroacular Muscles: Present: EOMI Conjunctiva: Present: Normal Mouth: Present: Moist Mucous Membranes Neck: Present: Normal Range of Motion Respiratory/Chest: Present: Clear to Auscultation, Good Air Exchange. No: Respiratory Distress, Accessory Muscle Use Cardiovascular: Present: Regular Rate and Rhythm, Normal S1, S2. No: Murmurs Abdomen: Present: Normal Bowel Sounds. No: Tenderness, Distention, Peritoneal Signs Back: Present: Normal Inspection Upper Extremity: Present: Normal Inspection. No: Cyanosis, Edema Lower Extremity: Present: Normal Inspection, Other (Restless legs, especially the right leg. Patient moving the right leg up and down. She moves abruptly and quickly when wanting to ask questions. ). No: Edema Neurological: Present: GCS=15, CN II-XII Intact, Speech Normal Skin: Present: Warm, Dry, Normal Color. No: Rashes Psychiatric: Present: Alert, Oriented x 3, Normal Insight, Normal Concentration Medical Decision Making ED Course and Treatment: 03/26/17 03:10 Impression: A 41 year old female presents to the emergency department complaining of back pain radiating down her right leg to the bottom of her heel that began this morning. Plan: -- Benadryl, Toradol, Morphine -- Reassess and disposition Progress Notes: - Medication Orders Current Medication Orders: Discontinued Medications Diphenhydramine HCl (Benadryl) 100 mg IM STAT STA Stop: 03/26/17 03:08 Last Admin: 03/26/17 03:23 Dose: 100 mg IM Administration Charges Document 03/26/17 03:23 AB (Rec: 03/26/17 03:24 AB [facility] [place] [id number] Injection Site MAR Injection Site Left Deltoid Charges for Administration # of IM Administrations 1 Ketorolac Tromethamine (Toradol) 60 mg IM STAT STA Stop: 03/26/17 03:08 Last Admin: 03/26/17 03:24 Dose: 60 mg MAR Pain Assessment Document 03/26/17 03:24 AB (Rec: 03/26/17 03:24 AB [facility] [id number] Pain Reassessment Is this a pain reassessment? Yes Sleep Is patient sleeping during reassessment? No Presence of Pain Presence of Pain Yes IM Administration Charges Document 03/26/17 03:24 AB (Rec: 03/26/17 03:24 AB [facility] [id number] Injection Site MAR Injection Site Left Vastus Lateralis Charges for Administration # of IM Administrations 1 Morphine Sulfate (Morphine) 10 mg IM STAT STA Stop: 03/26/17 03:08 Last Admin: 03/26/17 03:24 Dose: 10 mg MAR Pain Assessment Document 03/26/17 03:24 AB (Rec: 03/26/17 03:24 AB [facility] [id number] Pain Reassessment Is this a pain reassessment? Yes Sleep Is patient sleeping during reassessment? No Presence of Pain Presence of Pain Yes Pain Scale Used Pain Scale Used Numeric IM Administration Charges Document 03/26/17 03:24 AB (Rec: 03/26/17 03:24 AB [facility] [place] [id number] Injection Site MAR Injection Site Right Deltoid Charges for Administration # of IM Administrations 1 - Scribe Statement The provider has reviewed the documentation as recorded by the Presleyibvaishali Mccracken Provider Scribe Attestation: All medical record entries made by the Scribe were at my direction and personally dictated by me. I have reviewed the chart and agree that the record accurately reflects my personal performance of the history, physical exam, medical decision making, and the department course for this patient. I have also personally directed, reviewed, and agree with the discharge instructions and disposition. Disposition/Present on Arrival - Present on Arrival Any Indicators Present on Arrival: Yes History of DVT/PE: No History of Uncontrolled Diabetes: Yes Urinary Catheter: No History of Decub. Ulcer: No History Surgical Site Infection Following: None - Disposition Have Diagnosis and Disposition been Completed?: Yes Diagnosis: Chronic pain, Lumbar radiculopathy, Peripheral neuropathy, Bulging discs Disposition: HOME/ ROUTINE Disposition Time: 04:00 Patient Plan: Discharge Condition: IMPROVED Discharge Instructions (ExitCare): Lumbar Radiculopathy (ED), Diabetic Neuropathy (ED), Chronic Pain (ED) Additional Instructions: Mrs Brewster- I am sorry that you are having so much pain. You have to work with your pain management doctor to get this under control. Follow up with her and your primary care physician. [place]- Dr. Seun Ponce Forms: [employer] (Indonesian)
== END 2017-03-26 04:17 | disposition home or self-care (01) ==
LOC: ED 02:37
DX: M54.16 Radiculopathy, lumbar region (principal); G62.9 Polyneuropathy, unspecified; G89.29 Other chronic pain; E11.9 Type 2 diabetes mellitus without complications; E03.9 Hypothyroidism, unspecified; F17.210 Nicotine dependence, cigarettes, uncomplicated
CPT/HCPCS: 96372; 99283; J1200; J1885; J2270

== ENCOUNTER 2017-05-21 12:40 | Inpatient (IN) | payer MEDICAID ==
[2017-05-21 12:46] VITALS: BMI 22.1
[2017-05-21] MEDS ORDERED: Sodium Chloride 0.9% 1,000 ML IV STA ×2 (12:49→14:13)
--- NOTE | 2017-05-21 12:55 | ED PDOC ---
Arrival/HPI - General Chief Complaint: GI Problem Time Seen by Provider: 05/21/17 12:47 Historian: Patient, EMS - History of Present Illness Narrative History of Present Illness (Text): 05/21/17 12:45 pt p/w + 2-3 days onset of progressively worsening nausea/vomiting; pt states she has no appetite x 3 days; pt has been vomiting at least dozens of times daily; pt states diffuse bodyaches and pain; pt states + dizziness, no LOC; pt states no null, no vision changes, noted chest pressure today radiating from her epigastric region; pt states epigastric pain off and on; pt states mild sob, no palpitations, no numbness/tingling, pt states no urinary/bowel changes; pt states her pain is very different from her old back pain; pt denied facial asymmetries, no slurr speech; pt denied fall/trauma/sick contact, no travel; pt is here for further eval; pt's without other complaints. PCP: DR VERGARA Time/Duration: < week Symptom Onset: Sudden Symptom Course: Worsening Quality: Tightness Severity Level: Severe Activities at Onset: Rest Context: Home Past Medical History - Provider Review Nursing Documentation Reviewed: Yes - Travel History Have you recently traveled outside [place] w/in the past 3 mons?: No - Past History Past History: Non-Contributing - Infectious Disease Hx of Infectious Diseases: None - Tetanus Immunization Tetanus Immunization: Unknown - Reproductive Menopause: No Currently : Unknown - Cardiac Hx Cardiac Disorders: No - Pulmonary Hx Respiratory Disorders: No - Neurological Hx Neurological Disorder: Yes Hx Migraine: Yes Hx Seizures: Yes (child) - HEENT Hx HEENT Disorder: No - Renal Hx Renal Disorder: No - Endocrine/Metabolic Hx Endocrine Disorders: Yes Hx Diabetes Mellitus Type 2: Yes Hx Hypothyroidism: Yes - Hematological/Oncological Hx Blood Disorders: No - Integumentary Hx Dermatological Disorder: No - Musculoskeletal/Rheumatological Hx Musculoskeletal Disorders: Yes Hx Back Pain: Yes Other/Comment: sciatica - Gastrointestinal Hx Gastrointestinal Disorders: Yes Hx Crohn's Disease: Yes (dc 03/2014) Hx Diverticulitis: (denius) - Genitourinary/Gynecological Hx Genitourinary Disorders: No - Psychiatric Hx Psychophysiologic Disorder: Yes Hx Anxiety: Yes Hx Depression: Yes Hx Substance Use: No - Past Surgical History Past Surgical History: No Previous - Surgical History Hx Tubal Ligation: Yes (Left Tubal Ligation May 2016) Other/Comment: etopic pregnacy May 2016 - Anesthesia Hx Anesthesia: No Hx Anesthesia Reactions: No Hx Malignant Hyperthermia: No - Suicidal Assessment Feels Threatened In Home Enviroment: No Family/Social History - Physician Review Nursing Documentation Reviewed: Yes Family/Social History: No Known Family HX Smoking Status: Heavy Smoker > 10 Cigarettes Daily Hx Alcohol Use: No Hx Substance Use: No Hx Substance Use Treatment: No Allergies/Home Meds Allergies/Adverse Reactions: Allergies No Known Allergies Allergy (Verified 05/21/17 12:50) Home Medications: Home Meds Medication Instructions Recorded Confirmed Insulin Lispro [humALOG] 0 units SC AC 06/15/16 02/27/17 Review of Systems - Review of Systems Constitutional: Fatigue Eyes: Normal ENT: Normal Respiratory: Normal Cardiovascular: Chest Pain Gastrointestinal: Abdominal Pain, Nausea, Vomiting. absent: Constipation, Diarrhea Genitourinary Female: Normal Musculoskeletal: Other (diffuse body pain) Skin: Normal Neurological: Dizziness. absent: Headache Endocrine: Normal Hemo/Lymphatic: Normal Psychiatric: Normal Physical Exam Vital Signs Reviewed: Yes Vital Signs Temp Pulse Resp BP Pulse Ox 05/21/17 16:43 75 18 134/65 100 05/21/17 15:28 78 18 136/60 100 05/21/17 12:50 98.4 F 82 18 145/73 100 Temperature: Afebrile Blood Pressure: Hypertensive Pulse: Regular Respiratory Rate: Normal Appearance: Positive for: Well-Appearing, Uncomfortable, Other (uncomfortable, actively vomiting at bedside, moderate distress due to some pain; alert/awake, GCS = 15, oriented x 3, cooperative, resting in bed) Pain Distress: Moderate Mental Status: Positive for: Alert and Oriented X 3 - Systems Exam Head: Present: Atraumatic, Normocephalic Pupils: Present: PERRL, Other (wearing eye glasses, no nystagmus, no photophobia , sclera anciteric) Extroacular Muscles: Present: EOMI Conjunctiva: Present: Normal Ears: Present: Normal Mouth: Present: Normal Teeth, Other (dry oral mucosa, no drooling/stridor, no exudate/lesions, uvula/tongue are midline) Pharnyx: Present: Normal Nose (External): Present: Atraumatic Nose (Internal): Present: Normal Inspection Neck: Present: Normal Range of Motion, Trachea Midline, Other (no step off, no meningeal signs, no nuchal rigidity, no gross deformities). No: MIDLINE TENDERNESS Respiratory/Chest: Present: Clear to Auscultation, Good Air Exchange, Other (+ mild tachypenia, no accessory muscle use noted, no W/R/R) Cardiovascular: Present: Regular Rate and Rhythm, Normal S1, S2. No: Murmurs Abdomen: Present: Tenderness (epigastric), Normal Bowel Sounds, Other (diffuse epigastric tenderness, no vergara's sign, no mcburney's point tenderness, no masses/rebound/guarding/rigidity) Back: Present: Normal Inspection. No: CVA Tenderness, Midline Tenderness Upper Extremity: Present: Normal Inspection, Normal ROM, NORMAL PULSES, Neurovascularly Intact. No: Edema, Deformity Lower Extremity: Present: Normal Inspection, NORMAL PULSES, Normal ROM, Neurovascularly Intact, Other (neurovasc intact b/l). No: Edema, Eladio's Sign, Deformity Neurological: Present: GCS=15, CN II-XII Intact, Speech Normal, Other (no slurr speech, no facial asymmetries noted) Skin: Present: Warm, Dry, Normal Color, Other (cap refill ~ 1sec, no ulcerations , no petechiae, no rashes) Psychiatric: Present: Alert, Oriented x 3 Medical Decision Making ED Course and Treatment: 05/21/17 12:45 Impression: epigastric pain, n/v i have consider all the differential diagnosis regarding pt's chief medical complaints/clinical findings, including but are not limited to: epigastric pain , n/v; r/o DKA vs hyperosmolar ketoacidosis A/P: n/v, epigastric pain - labs - iv - xray - ua - observe - supportive care Progress Note: 1330 pt continue to have nausea, and vomiting has subsided pt states continued diffuse body pain pt is made aware of her medical results agrees with admission 05/21/17 14:30 Discussed case with hospitalist Dr. Ornelas, who is made aware and agrees with plan to accept patient under his service; would like to consult ICU for likely insulin drip placement 05/21/17 15:[address] Villarreal, who is aware and agrees with plan. 05/21/17 16:31 pt with improved symptoms, no vomiting noted decr body pain ICU team is at bedside, agrees with treatment plan Re-evaluation Time: 15:31 Reassessment Condition: Improving,but remains with symptoms - Critical Care Critical Care Minutes: 60 minutes Critical Care Time: Excluding Proc Time Narrative Critical Care (Text): 05/21/17 16:34 critical care time: 60min, excluding procedure time, excluding time teaching residents/students/mid-level providers; including initial eval/diagnosis, diagnostic interpretation, re-eval, consultations, final disposition - Lab Interpretations Lab Results: 05/21/17 13:00 05/21/17 13:00 Lab Results 05/21/17 15:30: Influenza Typ A,B (EIA) Negative for flu a/b 05/21/17 14:59: POC Glucose (mg/dL) 444 H* 05/21/17 13:00: Sodium 138, Chloride 96 L, Potassium 4.5, Carbon Dioxide 15 L, Anion Gap 32 H, BUN 19, Creatinine 0.7, Est GFR ( Amer) > 60, Est GFR ( Non-Af Amer) > 60, Random Glucose 469 H* D, Calcium 10.3, Total Bilirubin 1.1, AST 27, ALT 18, Alkaline Phosphatase 124, Troponin I < 0.01, Total Protein 7.1, Albumin 4.2, Globulin 2.9, Albumin/Globulin Ratio 1.4, Lipase 16 L 05/21/17 13:00: pO2 83 H, VBG pH 7.29 L, VBG pCO2 32.0 L, VBG HCO3 15.4 L, VBG Total CO2 16.4 L, VBG O2 Sat (Calc) 97.4 H, VBG Base Excess -10.0 L, VBG Potassium 4.5, Sodium 132.0, Chloride 96.0 L, Glucose 479 H* D, Lactate 3.5 H, FiO2 21.0, Venous Blood Potassium 4.5 05/21/17 13:00: WBC 26.2 H* D, RBC 5.20, Hgb 15.5 D, Hct 45.2, MCV 86.9 D, MCH 29.8, MCHC 34.3, RDW 14.9 H, Plt Count 465 H, MPV 11.3 H, Gran % 91.6 H, Lymph % (Auto) 5.1 L, [place] % (Auto) 3.1, Eos % (Auto) 0.0 L, Baso % (Auto) 0.2, Gran # 23.96 H, Lymph # (Auto) 1.3, [place] # (Auto) 0.8 H, Eos # (Auto) 0.0, Baso # (Auto) 0.06, Neutrophils % (Manual) 91 H, Lymphocytes % (Manual) 4 L, Monocytes % (Manual) 5 05/21/17 12:48: POC Glucose (mg/dL) 380 H I have reviewed the lab results: Yes Interpretation: Abnormal lab values (elevated WBCs/gluc, + AG, decr HCO3) - RAD Interpretation Narrative RAD Interpretations (Text): 05/21/17 17:19 HISTORY: epigastric/chest pain COMPARISON: 09/06/2016. TECHNIQUE: Chest PA and lateral FINDINGS: LUNGS: Cardiac interstitial lung disease, stable. PLEURA: No significant pleural effusion identified. No pneumothorax apparent. CARDIOVASCULAR: Normal. OSSEOUS STRUCTURES: No significant abnormalities. VISUALIZED UPPER ABDOMEN: Normal. OTHER FINDINGS: None. IMPRESSION: No active disease. No significant interval change compared to the prior examination(s). Radiology Orders: 05/21/17 12:58 CHEST TWO VIEWS (PA/LAT) [RAD] Stat Manager Training And Development: Radiologist - EKG Interpretation EKG Interpretation (Text): 05/21/17 12:59 NSR at 90 bpm, RAD, no ectopy, non-specific st changes, borderline voltage critera LVH, ABNL EKG; slight changes compare with old ekg 02/2017 Interpreted by ED Physician: Yes Type: 12 lead EKG Comparison: Different from prev. EKG - Medication Orders Current Medication Orders: Heparin Sodium (Porcine) (Heparin) 5,000 units SC Q12 DANNY PRN Reason: Protocol Insulin Human Regular 100 (units/ Sodium Chloride) 100 mls @ 5 mls/hr IV .Q20H PRN; Protocol; 5 UNITS/HR PRN Reason: TITRATE PER MD ORDER Last Admin: 05/21/17 16:01 Dose: 5 units/hr, 5 mls/hr eMAR Start Stop Document 05/21/17 16:01 EQ (Rec: 05/21/17 16:02 EQ [id number]) Intravenous Solution Start Date 05/21/17 Start Time 16:02 MAR Blood Glucose Document 05/21/17 16:01 EQ (Rec: 05/21/17 16:02 EQ [id number]) Blood Glucose Finger Stick Blood Glucose (70-120) 434 Titration Intervention Document 05/21/17 16:01 EQ (Rec: 05/21/17 16:02 EQ [id number]) Titration Intake Waste Amount 0 Container Volume 100 Titration Dosing Titration Dose 5 IV Rate 5 Intake/Decrease Started Sodium Bicarbonate 75 meq/ (Sodium Chloride) 1,075 mls @ 100 mls/hr IV .[id number] DANNY Last Admin: 05/21/17 17:02 Dose: 100 mls/hr eMAR Start Stop Document 05/21/17 17:02 EQ (Rec: 05/21/17 17:02 EQ [id number]) Intravenous Solution Start Date 05/21/17 Start Time 17:02 Cefepime HCl (Maxipime 1gm) 1 gm in 100 mls @ 100 mls/hr IVPB Q8 DANNY PRN Reason: Protocol Last Admin: 05/21/17 16:58 Dose: 100 mls/hr eMAR Start Stop Document 05/21/17 16:58 EQ (Rec: 05/21/17 17:01 EQ [id number]) Intravenous Solution Start Date 05/21/17 Start Time 17:01 Vancomycin HCl (Vancomycin 1gm) 1 gm in 250 mls @ 167 mls/hr IVPB STAT STA PRN Reason: Protocol Stop: 05/21/17 17:53 Morphine Sulfate (Morphine) 2 mg IVP Q6 PRN PRN Reason: Pain, severe (8-10) Discontinued Medications Sodium Chloride (Sodium Chloride 0.9%) 1,000 mls @ 999 mls/hr IV .Q1H1M STA Stop: 05/21/17 13:49 Last Admin: 05/21/17 13:19 Dose: 999 mls/hr eMAR Start Stop Document 05/21/17 13:19 EQ (Rec: 05/21/17 13:19 EQ [id number]) Intravenous Solution Start Date 05/21/17 Start Time 13:19 Famotidine (Pepcid 20mg/50ml Premix) 20 mg in 50 mls @ 100 mls/hr IVPB STAT STA Stop: 05/21/17 13:25 Last Admin: 05/21/17 13:19 Dose: 100 mls/hr eMAR Start Stop Document 05/21/17 13:19 EQ (Rec: 05/21/17 13:20 EQ [id number]) Intravenous Solution Start Date 05/21/17 Start Time 13:19 Sodium Bicarbonate 150 meq/ (Dextrose) 1,150 mls @ 100 mls/hr IV .[id number] DANNY Sodium Chloride (Sodium Chloride 0.9%) 1,000 mls @ 999 mls/hr IV .Q1H1M STA Stop: 05/21/17 15:13 Last Admin: 05/21/17 15:12 Dose: 999 mls/hr eMAR Start Stop Document 05/21/17 15:12 EQ (Rec: 05/21/17 15:12 EQ [id number]) Intravenous Solution Start Date 05/21/17 Start Time 15:12 Insulin Human Regular (Humulin R) 10 units IVP ONCE ONE Stop: 05/21/17 15:16 Last Admin: 05/21/17 15:27 Dose: 10 units MAR Blood Glucose Document 05/21/17 15:27 EQ (Rec: 05/21/17 15:28 EQ [id number]) Blood Glucose Finger Stick Blood Glucose (70-120) 444 IVP Administration Document 05/21/17 15:27 EQ (Rec: 05/21/17 15:28 EQ [id number]) Charges for Administration # of IVP Administrations 1 Metoclopramide HCl (Reglan) 10 mg IVP STAT STA Stop: 05/21/17 12:50 Last Admin: 05/21/17 13:19 Dose: 10 mg IVP Administration Document 05/21/17 13:19 EQ (Rec: 05/21/17 13:19 EQ [id number]) Charges for Administration # of IVP Administrations 1 Morphine Sulfate (Morphine) 4 mg IVP STAT STA Stop: 05/21/17 13:47 Last Admin: 05/21/17 15:12 Dose: 4 mg MAR Pain Assessment Document 05/21/17 15:12 EQ (Rec: 05/21/17 15:12 EQ [id number]) Pain Reassessment Is this a pain reassessment? No Sleep Is patient sleeping during reassessment? No Presence of Pain Presence of Pain Yes Pain Scale Used Pain Scale Used Numeric IVP Administration Document 05/21/17 15:12 EQ (Rec: 05/21/17 15:12 EQ [id number]) Charges for Administration # of IVP Administrations 1 Ondansetron HCl (Zofran Inj) 4 mg IVP STAT STA Stop: 05/21/17 12:56 Last Admin: 05/21/17 13:40 Dose: 4 mg IVP Administration Document 05/21/17 13:40 EQ (Rec: 05/21/17 13:40 EQ [id number]) Charges for Administration # of IVP Administrations 1 Ondansetron HCl (Zofran Inj) 4 mg IVP STAT STA Stop: 05/21/17 13:47 Last Admin: 05/21/17 15:12 Dose: 4 mg IVP Administration Document 05/21/17 15:12 EQ (Rec: 05/21/17 15:12 EQ [id number]) Charges for Administration # of IVP Administrations 1 Ondansetron HCl (Zofran Inj) 4 mg IVP STAT STA Stop: 05/21/17 15:22 Last Admin: 05/21/17 16:09 Dose: Disposition/Present on Arrival - Present on Arrival Any Indicators Present on Arrival: No History of DVT/PE: No History of Uncontrolled Diabetes: Yes Urinary Catheter: No History of Decub. 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
[2017-05-21] MEDS ORDERED: Famotidine 20mg/50ml 20 MG/50 ML BAG IVPB STA (12:56)
[2017-05-21 13:33] LABS: BASO # 0.06 K/mm3 (0.0-2.0); BASO % 0.2 % (0.0-3.0); GRAN # 23.96 (1.4-6.5); GRAN % 91.6 % (50.0-68.0); HEMOGLOBIN 15.5 g/dL (12.0-16.0); LYMPH # 1.3 (1.2-3.4); LYMPH % 5.1 % (22.0-35.0); MEAN CELL VOLUME 86.9 fl (80.0-105.0); MEAN CORPUSCULAR HEMOGLOBIN 29.8 pg (25.0-35.0); MEAN CORPUSCULAR HGB CONC 34.3 g/dl (31.0-37.0); MEAN PLATELET VOLUME 11.3 fl (7.0-11.0); MONO # 0.8 (0.1-0.6); MONO % 3.1 % (1.0-6.0); PLATELET COUNT 465 10^3/uL (120.0-450.0); RED CELL DISTRIBUTION WIDTH 14.9 % (11.5-14.5); VENOUS BLOOD GAS PO2 83 mm/Hg (30-55); VENOUS BLOOD PH 7.29 (7.32-7.43)
[2017-05-21] MEDS ORDERED: Morphine 4 mg/ml ISec IVP STA (13:46)
[2017-05-21 13:50] LABS: TROPONIN I < 0.01 ng/mL
[2017-05-21 13:51] LABS: ALB/GLOB RATIO 1.4 (1.1-1.8); ALBUMIN 4.2 g/dL (3.0-4.8); ALT/SGPT 18 U/L (7-56); AST/SGOT 27 U/L (14-36); BLOOD UREA NITROGEN 19 mg/dL (7-21); CALCIUM 10.3 mg/dL (8.4-10.5); GFR AFRICAN-AMERICAN > 60; GFR NON-AFRICAN AMERICAN > 60; LIPASE 16 U/L (23-300)
[2017-05-21 13:53] LABS: WHITE BLOOD COUNT 26.2 10^3/ul (4.5-11.0)
[2017-05-21] MEDS ORDERED: Sodium Bicarbonate 8.4% 150 MEQ in Dextrose 5% In Water 1,000 ML IV SCH (14:15)
[2017-05-21] MEDS ORDERED: Insulin Regular 100 UNITS in Sodium Chloride 0.9% 99 ML IV PRN (14:44)
[2017-05-21 14:46] LABS: LYMPHOCYTE 4 % (22.0-35.0); MONOCYTE 5 % (1.0-6.0); NEUTROPHIL 91 % (50.0-70.0)
[2017-05-21] MEDS ORDERED: Insulin Regular 1 UNITS/0.01 ML ML IVP ONE (15:15)
--- NOTE | 2017-05-21 15:20 | RAD ---
HISTORY: epigastric/chest pain COMPARISON: 09/06/2016. TECHNIQUE: Chest PA and lateral FINDINGS: LUNGS: Cardiac interstitial lung disease, stable. PLEURA: No significant pleural effusion identified. No pneumothorax apparent. CARDIOVASCULAR: Normal. OSSEOUS STRUCTURES: No significant abnormalities. VISUALIZED UPPER ABDOMEN: Normal. OTHER FINDINGS: None. IMPRESSION: No active disease. No significant interval change compared to the prior examination(s).
[2017-05-21] MEDS ORDERED: Vancomycin 1gm in NS 250ml 1 GM/250 ML BAG IVPB STA (16:24)
[2017-05-21] MEDS: Cefepime 1gm in NS 100ml 1 GM/100 ML BAG IVPB SCH ×2 (16:58→21:52)
[2017-05-21 17:32] LABS: VENOUS BLOOD GAS BASE EXCESS -13.2 mmol/L (0.0-2.0); VENOUS BLOOD GAS PO2 53 mm/Hg (30-55); VENOUS BLOOD PH 7.21 (7.32-7.43)
[2017-05-21 18:10] LABS: URINE BILIRUBIN NEGATIVE (NEGATIVE); URINE BLOOD NEGATIVE (NEGATIVE); URINE GLUCOSE (UA) >=1000 mg/dL (NEGATIVE); URINE LEUKOCYTE ESTERASE NEGATIVE Leu/uL (NEGATIVE); URINE PROTEIN NEGATIVE mg/dL (<30 mg/dL); URINE UROBILINOGEN 0.2 E.U./dL (<1 E.U./dL)
[2017-05-21 18:11] LABS: URINE APPEARANCE CLEAR (CLEAR); URINE COLOR YELLOW (YELLOW)
--- NOTE | 2017-05-21 18:42 | CT ---
PROCEDURE: CT Abdomen and Pelvis without intravenous contrast HISTORY: abdo pain COMPARISON: None. TECHNIQUE: Without contrast.. Contrast Dose: 0 Radiation dose: Total exam DLP = Total exam DLP = 06/25/2016 mGy-cm. This CT exam was performed using one or more of the following dose reduction techniques: Automated exposure control, adjustment of the mA and/or kV according to patient size, and/or use of iterative reconstruction technique. FINDINGS: LOWER THORAX: Unremarkable. LIVER: Unremarkable. No gross lesion or ductal dilatation. GALLBLADDER AND BILE DUCTS: Unremarkable. PANCREAS: Unremarkable. No gross lesion or ductal dilatation. SPLEEN: Unremarkable. ADRENALS: Unremarkable. No mass. KIDNEYS AND URETERS: Unremarkable. No hydronephrosis. No solid mass. VASCULATURE: Unremarkable. No aortic aneurysm. BOWEL: Unremarkable. No obstruction. No gross mural thickening. APPENDIX: Unremarkable. Normal appendix. PERITONEUM: Unremarkable. No free fluid. No free air. LYMPH NODES: Unremarkable. No enlarged lymph nodes. BLADDER: Unremarkable. REPRODUCTIVE: Normal uterus BONES: No acute fracture. OTHER FINDINGS: None. IMPRESSION: Unremarkable non contrast enhanced CT of the abdomen and pelvis.
--- NOTE | 2017-05-21 18:46 | CP.PCM.HP ---
<HenriqueAjaysoledad - Last Filed: 05/21/17 18:35> History of Present Illness - History of Present Illness History of Present Illness: Bettina Duenas DO PGY1 - IM H&P for Dr. Ornelas CC: Nausea and vomiting x2 days 42 y/o female, PMH of insulin dependant diabetes diagnosed in 2008, and chronic low back pain, presents complaining of nausea and vomiting x21 episodes for the past two days. Patient got on Wednesday (3 days ago) and then started having nausea and vomiting on Wednesday. The [place] was [place] [employer] (not a alliance party). She denies any new/strange food/restaurants/catering, cake, or alcohol. She denies recent illness, sick contacts, recent travel. She reports sore throat since starting vomiting. She also reports chest pain that "feels like its [her heart] coming out of my chest." Unsure of when the chest pain started, no particular exacerbating or remitting factors. She denies abdominal pain, dysuria, hematuria, fever, chills, otalgia, rhinorrhea. Patient does report questionable compliance with her home insulin regimen; not sure how much she is taking, as some one else at home is helping her with it. Vomit is nonbloody, nonbilious. 12 point ROS was obtained and was negative except as above. PMH: IDDM since 2008; chronic back pain PSH: 2002 Laparoscopy for 7-8 ruptured ovarian cysts and scar tissure removal from one fallopian tube FHx: Aunt: DM, Mom: of breast cancer at age 50 SH: 1 ppd x 25 years, active smoker; Denies ETOH, drug use All: NKDA Home Meds: Percocet q6 PRN, Levemir and premeal Lispro, patient unsure of dose Present on Admission - Present on Admission Any Indicators Present on Admission: Yes History of DVT/PE: No History of Uncontrolled Diabetes: Yes Urinary Catheter: No Decubitus Ulcer Present: No Past Patient History - Infectious Disease Hx of Infectious Diseases: None - Tetanus Immunizations Tetanus Immunization: Unknown - Past Medical History & Family History Past Medical History?: No - Past Social History Smoking Status: Heavy Smoker > 10 Cigarettes Daily - CARDIAC Hx Cardiac Disorders: No - PULMONARY Hx Respiratory Disorders: No - NEUROLOGICAL Hx Neurological Disorder: Yes Hx Migraine: Yes Hx Seizures: Yes (child) - HEENT Hx HEENT Problems: No - RENAL Hx Chronic Kidney Disease: No - ENDOCRINE/METABOLIC Hx Endocrine Disorders: Yes Hx Diabetes Mellitus Type 2: Yes Hx Hypothyroidism: Yes - HEMATOLOGICAL/ONCOLOGICAL Hx Blood Disorders: No - INTEGUMENTARY Hx Dermatological Problems: No - MUSCULOSKELETAL/RHEUMATOLOGICAL Hx Musculoskeletal Disorders: Yes Hx Back Pain: Yes Other/Comment: sciatica - GASTROINTESTINAL Hx Gastrointestinal Disorders: Yes Hx Crohn's Disease: Yes (dc 03/2014) Hx Diverticulitis: (denius) - GENITOURINARY/GYNECOLOGICAL Hx Genitourinary Disorders: No - PSYCHIATRIC Hx Psychophysiologic Disorder: Yes Hx Anxiety: Yes Hx Depression: Yes Hx Substance Use: No - SURGICAL HISTORY Hx Tubal Ligation: Yes (Left Tubal Ligation May 2016) Other/Comment: etopic pregnacy May 2016 - ANESTHESIA Hx Anesthesia: No Hx Anesthesia Reactions: No Hx Malignant Hyperthermia: No Meds Allergies/Adverse Reactions: Allergies Allergy/AdvReac Type Severity Reaction Status Date / Time No Known Allergies Allergy Verified 05/21/17 12:50 Physical Exam - Constitutional Appears: Non-toxic, In Acute Distress - Head Exam Head Exam: ATRAUMATIC, NORMOCEPHALIC - Eye Exam Eye Exam: EOMI, Normal appearance, PERRL - ENT Exam ENT Exam: Mucous Membranes Dry, Normal External Ear Exam, Normal Oropharynx, TM' s Normal Bilaterally - Neck Exam Neck exam: Positive for: Full Rom, Normal Inspection. Negative for: Lymphadenopathy - Respiratory Exam Respiratory Exam: Clear to Auscultation Bilateral, NORMAL BREATHING PATTERN - Cardiovascular Exam Cardiovascular Exam: Tachycardia, REGULAR RHYTHM, +S1, +S2 - GI/Abdominal Exam GI & Abdominal Exam: Guarding, Normal Bowel Sounds, Soft, Tenderness (Diffuse, worst in LLQ and suprapubic). absent: Distended, Firm, Rebound, Rigid - Extremities Exam Extremities exam: Positive for: normal inspection. Negative for: calf tenderness, pedal edema - Neurological Exam Neurological exam: Alert, CN II-XII Intact, Oriented x3 - Psychiatric Exam Psychiatric exam: Anxious - Skin Skin Exam: Dry, Intact, Normal Color Results - Vital Signs Recent Vital Signs: Last Vital Signs Temp 98.4 F 05/21/17 12:50 Pulse 75 05/21/17 16:43 Resp 18 05/21/17 16:43 BP 134/65 05/21/17 16:43 Pulse Ox 100 05/21/17 16:43 - Labs Result Diagrams: 05/21/17 13:00 05/21/17 13:00 Labs: Laboratory Results - last 24 hr 05/21/17 05/21/17 05/21/17 15:47 17:05 17:26 pO2 53 VBG pH 7.21 L VBG pCO2 34.0 L VBG HCO3 13.6 L VBG Total CO2 14.6 L VBG O2 Sat (Calc) 90.9 H VBG Base Excess -13.2 L VBG Potassium 3.8 Sodium 136.0 Chloride 101.0 Glucose 378 H Lactate 2.5 H FiO2 21.0 POC Glucose (mg/dL) 433 H* 295 H Venous Blood Potassium 3.8 Urine Color Urine Appearance Urine pH Ur Specific [place] Urine Protein Urine Glucose (UA) Urine Ketones Urine Blood Urine Nitrate Urine Bilirubin Urine Urobilinogen Ur Leukocyte Esterase 05/21/17 05/21/17 17:59 18:00 pO2 VBG pH VBG pCO2 VBG HCO3 VBG Total CO2 VBG O2 Sat (Calc) VBG Base Excess VBG Potassium Sodium Chloride Glucose Lactate FiO2 POC Glucose (mg/dL) 272 H Venous Blood Potassium Urine Color Yellow Urine Appearance Clear Urine pH 6.0 Ur Specific [place] 1.020 Urine Protein Negative Urine Glucose (UA) >=1000 Urine Ketones >=80 Urine Blood Negative Urine Nitrate Negative Urine Bilirubin Negative Urine Urobilinogen 0.2 Ur Leukocyte Esterase Negative Assessment & Plan - Assessment and Plan (Free Text) Assessment: 42 y/o female, PMH of insulin dependant diabetes diagnosed in 2008, and chronic low back pain, presents complaining of nausea and vomiting x21 episodes for the past two days Nausea and vomiting - Likely 2/2 DKA, as below - Improved symptomatically with zofran - Use zofran/reglan sparingly because of prolonged QT - Patient also complaining of abdominal pain; CT A/P ordered; less likely bowel obstruction given DKA - NPO for DKA Uncontrolled IDDM; now with DKA - Patient is hyperglycemic with metabolic acidosis with elevated anion gap; compensatory respiratory alkalosis noted on VBG - Likely 2/2 medication noncompliance vs intraabdominal infection; UA ordered to r/o UTI; CT A/P ordered as above - Patient received insulin bolus and NS bolus in ER; started on insulin drip and bicarb drip - Continue insulin drip with Q1h accucheck and Q4h BMP; until blood glucose < 250 and anion gap closes - Will calculate insulin requirement and switch to basal/bolus insulin when above criteria are med - Monitor K closely and replete as needed - Admit to ICU for insulin drip and Q1h accucheck Chest pain - Likely 2/2 vomiting, DKA, and tachycardia - Initial troponin negative; continue to trend - Initial EKG shows NSR with no acute ST-T wave abnormalities; notable for prolonged QT; repeat EKG in AM - Morphine PRN for pain Abdominal tenderness - Patient not complaining of abdominal pain, but was tender with gaurding to deep palpation, worst in LLQ - Likely 2/2 DKA and vomiting vs UTI - CT A/P ordered to r/o intraabdominal infection, bowel obstruction - UA ordered to r/o UTI - Morphine PRN for pain Leukocytosis - Afebrile; Likely reactive 2/2 DKA, though septic workup ordered, especially considering elevated lactate; patient also hemoconcentrated - Repeat VBG shock panel to recheck lactate - UA, urine culture, blood cultures, and procalcitonin ordered - Abx started per ICU; cefepime and vanc - Recheck in AM Nicotine dependance - Offered nicotine patch - Discussed tobacco cessation GI/DVT Ppx: Heparin and protonix Patient seen, discussed, and reviewed with attending Dr. Ornelas <Charito Ornelas - Last Filed: 05/22/17 07:43> Results - Vital Signs Recent Vital Signs: Last Vital Signs Temp 98.1 F 05/22/17 04:00 Pulse 82 05/22/17 06:30 Resp 34 H 05/22/17 06:30 BP 100/50 L 05/22/17 06:00 Pulse Ox 96 05/22/17 06:30 - Labs Result Diagrams: 05/22/17 05:00 05/22/17 05:00 Labs: Laboratory Results - last 24 hr 05/21/17 05/21/17 05/21/17 15:47 17:05 17:26 WBC RBC Hgb Hct MCV MCH MCHC RDW Plt Count MPV Gran % Lymph % (Auto) Jay % (Auto) Eos % (Auto) Baso % (Auto) Gran # Lymph # (Auto) Jay # (Auto) Eos # (Auto) Baso # (Auto) pO2 53 VBG pH 7.21 L VBG pCO2 34.0 L VBG HCO3 13.6 L VBG Total CO2 14.6 L VBG O2 Sat (Calc) 90.9 H VBG Base Excess -13.2 L VBG Potassium 3.8 Sodium 136.0 Chloride 101.0 Glucose 378 H Lactate 2.5 H FiO2 21.0 Potassium Carbon Dioxide Anion Gap BUN Creatinine Est GFR ( Amer) Est GFR (Non-Af Amer) POC Glucose (mg/dL) 433 H* 295 H Random Glucose Calcium Total Bilirubin AST ALT Alkaline Phosphatase Troponin I Total Protein Albumin Globulin Albumin/Globulin Ratio Venous Blood Potassium 3.8 Urine Color Urine Appearance Urine pH Ur Specific [place] Urine Protein Urine Glucose (UA) Urine Ketones Urine Blood Urine Nitrate Urine Bilirubin Urine Urobilinogen Ur Leukocyte Esterase 05/21/17 05/21/17 05/21/17 17:59 18:00 18:50 WBC RBC Hgb Hct MCV MCH MCHC RDW Plt Count MPV Gran % Lymph % (Auto) Jay % (Auto) Eos % (Auto) Baso % (Auto) Gran # Lymph # (Auto) Jay # (Auto) Eos # (Auto) Baso # (Auto) pO2 VBG pH VBG pCO2 VBG HCO3 VBG Total CO2 VBG O2 Sat (Calc) VBG Base Excess VBG Potassium Sodium Chloride Glucose Lactate FiO2 Potassium Carbon Dioxide Anion Gap BUN Creatinine Est GFR ( Amer) Est GFR (Non-Af Amer) POC Glucose (mg/dL) 272 H 259 H Random Glucose Calcium Total Bilirubin AST ALT Alkaline Phosphatase Troponin I Total Protein Albumin Globulin Albumin/Globulin Ratio Venous Blood Potassium Urine Color Yellow Urine Appearance Clear Urine pH 6.0 Ur Specific [place] 1.020 Urine Protein Negative Urine Glucose (UA) >=1000 Urine Ketones >=80 Urine Blood Negative Urine Nitrate Negative Urine Bilirubin Negative Urine Urobilinogen 0.2 Ur Leukocyte Esterase Negative 05/21/17 05/21/17 05/21/17 19:28 19:33 20:33 WBC RBC Hgb Hct MCV MCH MCHC RDW Plt Count MPV Gran % Lymph % (Auto) Jay % (Auto) Eos % (Auto) Baso % (Auto) Gran # Lymph # (Auto) Jay # (Auto) Eos # (Auto) Baso # (Auto) pO2 VBG pH VBG pCO2 VBG HCO3 VBG Total CO2 VBG O2 Sat (Calc) VBG Base Excess VBG Potassium Sodium 138 Chloride 105 Glucose Lactate FiO2 Potassium 4.0 Carbon Dioxide 14 L Anion Gap 23 H BUN 18 Creatinine 0.6 L Est GFR ( Amer) > 60 Est GFR (Non-Af Amer) > 60 POC Glucose (mg/dL) 230 H 220 H Random Glucose 279 H Calcium 9.2 Total Bilirubin AST ALT Alkaline Phosphatase Troponin I < 0.01 Total Protein Albumin Globulin Albumin/Globulin Ratio Venous Blood Potassium Urine Color Urine Appearance Urine pH Ur Specific [place] Urine Protein Urine Glucose (UA) Urine Ketones Urine Blood Urine Nitrate Urine Bilirubin Urine Urobilinogen Ur Leukocyte Esterase 05/21/17 05/21/17 05/22/17 21:43 23:06 00:11 WBC RBC Hgb Hct MCV MCH MCHC RDW Plt Count MPV Gran % Lymph % (Auto) Jay % (Auto) Eos % (Auto) Baso % (Auto) Gran # Lymph # (Auto) Jay # (Auto) Eos # (Auto) Baso # (Auto) pO2 VBG pH VBG pCO2 VBG HCO3 VBG Total CO2 VBG O2 Sat (Calc) VBG Base Excess VBG Potassium Sodium Chloride Glucose Lactate FiO2 Potassium Carbon Dioxide Anion Gap BUN Creatinine Est GFR ( Amer) Est GFR (Non-Af Amer) POC Glucose (mg/dL) 169 H 125 H 123 H Random Glucose Calcium Total Bilirubin AST ALT Alkaline Phosphatase Troponin I Total Protein Albumin Globulin Albumin/Globulin Ratio Venous Blood Potassium Urine Color Urine Appearance Urine pH Ur Specific [place] Urine Protein Urine Glucose (UA) Urine Ketones Urine Blood Urine Nitrate Urine Bilirubin Urine Urobilinogen Ur Leukocyte Esterase 05/22/17 05/22/17 05/22/17 00:30 01:09 02:12 WBC RBC Hgb Hct MCV MCH MCHC RDW Plt Count MPV Gran % Lymph % (Auto) Jay % (Auto) Eos % (Auto) Baso % (Auto) Gran # Lymph # (Auto) Jay # (Auto) Eos # (Auto) Baso # (Auto) pO2 VBG pH VBG pCO2 VBG HCO3 VBG Total CO2 VBG O2 Sat (Calc) VBG Base Excess VBG Potassium Sodium 139 Chloride 108 H Glucose Lactate FiO2 Potassium 3.7 Carbon Dioxide 21 Anion Gap 14 BUN 15 Creatinine 0.6 L Est GFR ( Amer) > 60 Est GFR (Non-Af Amer) > 60 POC Glucose (mg/dL) 138 H 126 H Random Glucose 121 H Calcium 9.1 Total Bilirubin AST ALT Alkaline Phosphatase Troponin I < 0.01 Total Protein Albumin Globulin Albumin/Globulin Ratio Venous Blood Potassium Urine Color Urine Appearance Urine pH Ur Specific [place] Urine Protein Urine Glucose (UA) Urine Ketones Urine Blood Urine Nitrate Urine Bilirubin Urine Urobilinogen Ur Leukocyte Esterase 05/22/17 05/22/17 05/22/17 03:16 05:00 05:00 WBC 21.9 H RBC 4.24 Hgb 12.2 D Hct 36.2 MCV 85.4 MCH 28.8 MCHC 33.7 RDW 14.5 Plt Count 370 MPV 10.5 Gran % 72.8 H Lymph % (Auto) 20.7 L Jay % (Auto) 5.8 Eos % (Auto) 0.5 L Baso % (Auto) 0.2 Gran # 15.94 H Lymph # (Auto) 4.5 H Jay # (Auto) 1.3 H Eos # (Auto) 0.1 Baso # (Auto) 0.04 pO2 VBG pH VBG pCO2 VBG HCO3 VBG Total CO2 VBG O2 Sat (Calc) VBG Base Excess VBG Potassium Sodium 138 Chloride 110 H Glucose Lactate FiO2 Potassium 3.7 Carbon Dioxide 22 Anion Gap 10 BUN 15 Creatinine 0.6 L Est GFR ( Amer) > 60 Est GFR (Non-Af Amer) > 60 POC Glucose (mg/dL) 129 H Random Glucose 176 H Calcium 8.6 Total Bilirubin 0.4 AST 16 ALT 24 Alkaline Phosphatase 66 Troponin I Total Protein 5.2 L Albumin 2.7 L Globulin 2.5 Albumin/Globulin Ratio 1.1 Venous Blood Potassium Urine Color Urine Appearance Urine pH Ur Specific [place] Urine Protein Urine Glucose (UA) Urine Ketones Urine Blood Urine Nitrate Urine Bilirubin Urine Urobilinogen Ur Leukocyte Esterase 05/22/17 05/22/17 06:02 07:06 WBC RBC Hgb Hct MCV MCH MCHC RDW Plt Count MPV Gran % Lymph % (Auto) Jay % (Auto) Eos % (Auto) Baso % (Auto) Gran # Lymph # (Auto) Jay # (Auto) Eos # (Auto) Baso # (Auto) pO2 VBG pH VBG pCO2 VBG HCO3 VBG Total CO2 VBG O2 Sat (Calc) VBG Base Excess VBG Potassium Sodium Chloride Glucose Lactate FiO2 Potassium Carbon Dioxide Anion Gap BUN Creatinine Est GFR ( Amer) Est GFR (Non-Af Amer) POC Glucose (mg/dL) 171 H 147 H Random Glucose Calcium Total Bilirubin AST ALT Alkaline Phosphatase Troponin I Total Protein Albumin Globulin Albumin/Globulin Ratio Venous Blood Potassium Urine Color Urine Appearance Urine pH Ur Specific [place] Urine Protein Urine Glucose (UA) Urine Ketones Urine Blood Urine Nitrate Urine Bilirubin Urine Urobilinogen Ur Leukocyte Esterase Attending/Attestation - Attestation I have personally seen and examined this patient.: Yes I have fully participated in the care of the patient.: Yes I have reviewed all pertinent clinical information: Yes Notes (Text): 05/21/17 42 year old female with past medical history of diabetes and chronic back pain who presents with complaint of abdominal/chest pain with nausea and vomiting. She was found to be in DKA and admitted to ICU. Started on iv fluids and insulin drip. Will do serial bmps and fingersticks. Serial cardiac enzymes are ordered to rule out ACS. CT abd/pelvis is ordered for complaint of abdominal pain. Continue with NPO for now. Leukocytosis is possibly reactive, however will need to rule out infectious etiology. Started on broad spectrum antibiotics while awaiting cultures. She was counselled on smoking cessation. Charito Ornelas MD Hospitalist.
[2017-05-21 19:50] LABS: BLOOD UREA NITROGEN 18 mg/dL (7-21); CALCIUM 9.2 mg/dL (8.4-10.5); GFR AFRICAN-AMERICAN > 60; GFR NON-AFRICAN AMERICAN > 60
[2017-05-21 20:09] LABS: TROPONIN I < 0.01 ng/mL
--- NOTE | 2017-05-21 20:19 | CARD ---
APPROVED REPORT EKG Measurement Heart [id number] <Conclusion> Poor data quality, interpretation may be adversely affected Normal sinus rhythm Rightward axis Prolonged QT Abnormal ECG
[2017-05-21] MEDS: Morphine 4 mg/ml ISec IVP PRN (20:21)
--- NOTE | 2017-05-21 21:38 | CP.PCM.PN ---
Subjective - Date & Time of Evaluation Date of Evaluation: 05/21/17 Time of Evaluation: 21:38 - Subjective Subjective: # 22 angiocath was inserted in left hand dorsum. Dx:Poor venous access. Objective - Vital Signs/Intake and Output Vital Signs (last 24 hours): Temp Pulse Resp BP Pulse Ox 98.4 F 93 H 27 H 92/40 L 98 05/21/17 12:50 05/21/17 19:30 05/21/17 19:20 05/21/17 19:00 05/21/17 19:30 Intake and Output: 05/21/17 05/22/17 18:59 06:59 Intake Total 10 Balance 10 - Medications Medications: Current Medications Diphenhydramine HCl (Benadryl) 25 mg IVP HS PRN PRN Reason: Insomnia Heparin Sodium (Porcine) (Heparin) 5,000 units SC Q8 DANNY PRN Reason: Protocol Insulin Human Regular 100 (units/ Sodium Chloride) 100 mls @ 5 mls/hr IV .Q20H PRN; Protocol; 5 UNITS/HR PRN Reason: TITRATE PER MD ORDER Last Titration: 05/21/17 17:28 Dose: 3 units/hr, 3 mls/hr Sodium Bicarbonate 75 meq/ (Sodium Chloride) 1,075 mls @ 100 mls/hr IV .[id number] [facility] Last Admin: 05/21/17 17:02 Dose: 100 mls/hr Cefepime HCl (Maxipime 1gm) 1 gm in 100 mls @ 100 mls/hr IVPB Q8 DANNY PRN Reason: Protocol Last Admin: 05/21/17 16:58 Dose: 100 mls/hr Potassium Chloride 20 meq/ (Sodium Chloride) 1,010 mls @ 120 mls/hr IV .[id number] [facility] Stop: 05/22/17 04:39 Morphine Sulfate (Morphine) 2 mg IVP Q6 PRN PRN Reason: Pain, severe (8-10) Last Admin: 05/21/17 20:21 Dose: 2 mg Pantoprazole Sodium (Protonix Inj) 40 mg IVP DAILY [facility] Saliva Substitute (Saliva Substitute) 0 ml PO Q4 DANNY - Labs Labs: 05/21/17 19:33
[2017-05-21] MEDS: DiphenhydrAMINE 50 mg/ml Inj IVP PRN (22:12)
[2017-05-21] MEDS ORDERED: Potassium Chloride 20 MEQ in Dextrose 5%/0.9% NS 1,000 ML IV SCH (22:15)
[2017-05-22 01:21] LABS: TROPONIN I < 0.01 ng/mL
[2017-05-22 01:28] LABS: BLOOD UREA NITROGEN 15 mg/dL (7-21); CALCIUM 9.1 mg/dL (8.4-10.5); GFR AFRICAN-AMERICAN > 60; GFR NON-AFRICAN AMERICAN > 60
[2017-05-22] MEDS ORDERED: Potassium Chloride 20 MEQ in Dextrose 5%/0.9% NS 1,000 ML IV SCH (01:50)
[2017-05-22] MEDS ORDERED: Insulin Detemir 100 units/ml Vial (Levemir) SC ONE (03:00)
[2017-05-22] MEDS: Morphine 4 mg/ml ISec IVP PRN ×2 (03:26→08:48)
--- NOTE | 2017-05-22 03:49 | CON ---
DATE: HISTORY OF PRESENT ILLNESS: Patient is a 42-year-old lady with history of type 2 diabetes diagnosed about 10 or so years ago. She presented with 2 to 3 days of progressively worsening nausea and vomiting, but no diarrhea. She reports that she 3 days ago and experienced those symptoms the next day. She also has fatigue, malaise, tiredness and body aches. Because of nausea and vomiting, she was not taking her insulin appropriately and she checked her blood glucose earlier today, which was extremely elevated. Patient also reported epigastric pain on and off, which was fairly severe without any radiation to the back or other areas. The pain is about 8/10 and described as acute, but sometimes dull. Patient denies dysuria. No fever, no chills, no sweats. Patient was found to have highly elevated blood glucose in the emergency room and also highly elevated anion gap. Patient was given insulin IV and then insulin drip started. Fluid resuscitation started. So far, patient received 2 liters of normal saline and bicarb drip as a maintenance fluid was ordered. Of note, patient's pH was 7.29. PAST MEDICAL HISTORY: Diabetes type 2, Crohn disease diagnosed in 2015. PAST SURGICAL HISTORY: Tubal ligation, ectopic in 2017. FAMILY HISTORY: Patient is a heavy smoker. She smokes about 10 cigarettes a day. ALLERGIES: NKDA. SOCIAL HISTORY: Patient denies alcohol or illicit drug abuse. HOME MEDICATION: Only insulin, lispro. REVIEW OF SYSTEM: Review of 12-organ system other than mentioned in the history of present illness is negative. FAMILY HISTORY: Noncontributory. PHYSICAL EXAMINATION: VITAL SIGNS: Temperature 98.4, blood pressure 145/73, respiratory rate 18, oxygen saturation 100% on room air. HEENT: Head and neck atraumatic. LUNGS: Clear auscultation bilaterally. HEART: Regular rate and rhythm. S1 and S2 normal. ABDOMEN: Soft, nontender, nondistended. MUSCULOSKELETAL: No C/C/E. NEUROLOGIC: Patient moves all extremities spontaneously. SKIN: Moist. PSYCHIATRIC: Patient is alert and oriented x3. However, somewhat lethargic (patient received morphine for her abdominal pain.) LABORATORY DATA: Sodium 138, potassium 4.5, chloride 96, carbon dioxide 15, BUN , creatinine 0.7, glucose 433, AST 27, ALT 18, total bilirubin 1.1. Troponin less than 0.01. WBC 26.2, hemoglobin 15.5, platelet count 465. ABG showed lactic acid 3.5 and pH 7.29. Influenza negative. ASSESSMENT AND PLAN: This is a 42-year-old lady who presented with diabetic ketoacidosis in the setting of abdominal pain and leukocytosis while it is possible that it may be reactive due to lactic acidosis per se. I cannot rule out intra-abdominal infection especially in the patient who has a history of Crohn disease and leukocytosis. Septic workup was sent. Blood culture, urine culture and procalcitonin were ordered. Patient was started on empiric antibiotics. Fluid resuscitation is ongoing. Patient is hemodynamically and respiratory cat stable. Insulin drip is ongoing. Basic metabolic panel will be checked every 4 hours, Accu-Chek every 1 hour. Patient will be going to Intensive Care Unit for further monitoring and management. Once AG closed patient will be switched to longer-acting subcutaneous formulation of insulin. When blood glucose trends down below 250, the patient will be switched to D5 containing solution. We will continue to target euvolemia, euglycemia, normothermia, and oxygen saturation more than 90%. We will continue with deep venous thrombosis and gastrointestinal prophylaxis. ccm time 40 min Shady Flores MD MANAV
[2017-05-22] MEDS: Saliva Substitute 44.3 ML PO SCH ×6 (05:00→20:00)
[2017-05-22 06:04] LABS: BASO # 0.04 K/mm3 (0.0-2.0); BASO % 0.2 % (0.0-3.0); EOS # 0.1 (0.0-0.7); EOS % 0.5 % (1.5-5.0); GRAN # 15.94 (1.4-6.5); GRAN % 72.8 % (50.0-68.0); HEMOGLOBIN 12.2 g/dL (12.0-16.0); LYMPH # 4.5 (1.2-3.4); LYMPH % 20.7 % (22.0-35.0); MEAN CELL VOLUME 85.4 fl (80.0-105.0); MEAN CORPUSCULAR HEMOGLOBIN 28.8 pg (25.0-35.0); MEAN CORPUSCULAR HGB CONC 33.7 g/dl (31.0-37.0); MEAN PLATELET VOLUME 10.5 fl (7.0-11.0); MONO # 1.3 (0.1-0.6); MONO % 5.8 % (1.0-6.0); RBC 4.24 10^6/uL (3.5-6.1); RED CELL DISTRIBUTION WIDTH 14.5 % (11.5-14.5); WHITE BLOOD COUNT 21.9 10^3/ul (4.5-11.0)
[2017-05-22] MEDS: Cefepime 1gm in NS 100ml 1 GM/100 ML BAG IVPB SCH ×3 (06:13→13:02)
[2017-05-22 06:49] LABS: ALB/GLOB RATIO 1.1 (1.1-1.8); ALBUMIN 2.7 g/dL (3.0-4.8); ALT/SGPT 24 U/L (7-56); AST/SGOT 16 U/L (14-36); BLOOD UREA NITROGEN 15 mg/dL (7-21); CALCIUM 8.6 mg/dL (8.4-10.5); GFR AFRICAN-AMERICAN > 60; GFR NON-AFRICAN AMERICAN > 60
[2017-05-22] MEDS: Sodium Chloride 0.9% 1,000 ML IV SCH (08:08)
[2017-05-22] MEDS ORDERED: Oxycodone/Acetaminophen 5/325 mg Tab PO PRN (11:30)
[2017-05-22] MEDS ORDERED: Insulin Lispro (HUMAlog) HIGH Coverage SC SCH (11:30)
[2017-05-22] MEDS: Insulin Reg-MEDIUM-Coverage SC SCH ×4 (11:40→22:02)
[2017-05-22] MEDS ORDERED: Oxycodone/Acetaminophen 10/325 mg Tab PO PRN (12:16)
--- NOTE | 2017-05-22 13:38 | CP.PCM.PN ---
<Bettina Duenas - Last Filed: 05/22/17 13:35> Subjective - Date & Time of Evaluation Date of Evaluation: 05/22/17 Time of Evaluation: 07:30 - Subjective Subjective: Bettina Duenas DO PGY1 - IM Progress Note Patient seen and examined at bedside in the ICU. Patient reports resolution of nausea and vomiting, no episodes of vomiting overnight. Patient is off insulin drip as of early this morning. She denies abdominal pain. Complaining of back and left leg pain which she has chronically. Denies chest pain, shortness of breath, fever, chills, diarrhea, constipation. Patient now reports that the day of her wedding, they went to a restaurant that she hadn't been to in over 20 years, and she "ate from everything." Objective - Vital Signs/Intake and Output Vital Signs (last 24 hours): Temp Pulse Resp BP Pulse Ox 98.6 F 66 15 126/85 98 05/22/17 08:16 05/22/17 12:39 05/22/17 12:27 05/22/17 12:00 05/22/17 12:00 Intake and Output: 05/22/17 05/22/17 06:59 18:59 Intake Total 2200 1200 Output Total 600 200 Balance 1600 1000 - Medications Medications: Current Medications Diphenhydramine HCl (Benadryl) 25 mg IVP HS PRN PRN Reason: Insomnia Last Admin: 05/21/17 22:12 Dose: 25 mg Heparin Sodium (Porcine) (Heparin) 5,000 units SC Q8 DANNY PRN Reason: Protocol Last Admin: 05/22/17 13:01 Dose: 5,000 units Cefepime HCl (Maxipime 1gm) 1 gm in 100 mls @ 100 mls/hr IVPB Q8 DANNY PRN Reason: Protocol Last Admin: 05/22/17 13:02 Dose: Not Given Sodium Chloride (Sodium Chloride 0.9%) 1,000 mls @ 100 mls/hr IV .Q10H [facility] Last Admin: 05/22/17 08:08 Dose: 100 mls/hr Insulin Human Regular (Humulin R Med) 0 units SC ACHS DANNY PRN Reason: Protocol Last Admin: 05/22/17 12:31 Dose: 1 units Oxycodone/Acetaminophen (Percocet 10/325 Mg Tab) 1 tab PO BID PRN PRN Reason: Pain, severe (8-10) Pantoprazole Sodium (Protonix Inj) 40 mg IVP DAILY [facility] Last Admin: 05/22/17 09:01 Dose: 40 mg Saliva Substitute (Saliva Substitute) 0 ml PO Q4 [facility] Last Admin: 05/22/17 12:06 Dose: 1 ml Zolpidem Tartrate (Ambien) 5 mg PO HS PRN; Protocol PRN Reason: Insomnia Last Admin: 05/22/17 01:09 Dose: 5 mg - Labs Labs: 05/22/17 05:00 05/22/17 05:00 - Constitutional Appears: Non-toxic, No Acute Distress - Head Exam Head Exam: ATRAUMATIC, NORMOCEPHALIC - Eye Exam Eye Exam: EOMI, Normal appearance, PERRL - ENT Exam ENT Exam: Mucous Membranes Moist - Neck Exam Neck Exam: Normal Inspection - Respiratory Exam Respiratory Exam: Clear to Ausculation Bilateral, NORMAL BREATHING PATTERN - Cardiovascular Exam Cardiovascular Exam: RRR, +S1, +S2 - GI/Abdominal Exam GI & Abdominal Exam: Soft, Normal Bowel Sounds. absent: Tenderness - Extremities Exam Extremities Exam: absent: Calf Tenderness, Pedal Edema - Neurological Exam Neurological Exam: Alert, Awake, Oriented x3 - Psychiatric Exam Psychiatric exam: Normal Affect, Normal Mood - Skin Skin Exam: Dry, Intact, Normal Color Assessment and Plan - Assessment and Plan (Free Text) Assessment: 42 y/o female, PMH of insulin dependant diabetes diagnosed in 2008, and chronic low back pain, presents complaining of nausea and vomiting x21 episodes for the past two days. Patient admitted to ICU for insulin drip for DKA, now discontinued after AG closed. Tolerating PO Nausea and vomiting - Likely 2/2 DKA, as below - No further episodes of n/v overnight; has not required antiemetics since admission - CT A/P unremakable - Patient tolerating PO Uncontrolled IDDM; now with DKA - Likely 2/2 noncompliance vs gastritis; UA shows no UTI; CT A/P shows no intraabdominal infection - Patient is off insulin drip per ICU; AG closed; blood glucose <250 - Patient recieved 25u levimir at approximately 0300; will monitor accucheck throughout the day and supplement 1/2 dose or full dose of levimir HS - Patient takes Levimir 35u HS and Novalog 15u AC, per outside pharmacy - Continue sliding scale insulin with accucheck AC/HS Chest pain - Patient no longer complaining of chest pain; trops negative x3 Abdominal tenderness - Resolved; no tenderness on exam - Likely 2/2 DKA and vomiting - CT A/P unremarkable - UA negative Leukocytosis - Afebrile; Trending down; Likely reactive 2/2 DKA, pending septic workup - UA negative; CXR negative; Procal low; urine culture, blood cultures pending - On cefepime per ICU; will discontinue if cultures are negative Nicotine dependance - Offered nicotine patch - Discussed tobacco cessation Chronic back pain - Patient takes percocet 10/325 BID per outside pharmacy - Continue home percocet GI/DVT Ppx: Heparin and protonix Patient seen, discussed, and reviewed with attending Dr. Ornelas <Charito Ornelas - Last Filed: 05/22/17 16:04> Objective - Vital Signs/Intake and Output Vital Signs (last 24 hours): Temp Pulse Resp BP Pulse Ox 98.6 F 66 15 126/85 98 05/22/17 08:16 05/22/17 12:39 05/22/17 12:27 05/22/17 12:00 05/22/17 12:00 Intake and Output: 05/22/17 05/22/17 06:59 18:59 Intake Total 2200 1200 Output Total 600 200 Balance 1600 1000 - Medications Medications: Current Medications Diphenhydramine HCl (Benadryl) 25 mg IVP HS PRN PRN Reason: Insomnia Last Admin: 05/21/17 22:12 Dose: 25 mg Heparin Sodium (Porcine) (Heparin) 5,000 units SC Q8 DANNY PRN Reason: Protocol Last Admin: 05/22/17 13:01 Dose: 5,000 units Cefepime HCl (Maxipime 1gm) 1 gm in 100 mls @ 100 mls/hr IVPB Q8 DANNY PRN Reason: Protocol Last Admin: 05/22/17 13:02 Dose: Not Given Sodium Chloride (Sodium Chloride 0.9%) 1,000 mls @ 100 mls/hr IV .Q10H DANNY Last Admin: 05/22/17 08:08 Dose: 100 mls/hr Insulin Human Regular (Humulin R Med) 0 units SC ACHS DANNY PRN Reason: Protocol Last Admin: 05/22/17 12:31 Dose: 1 units Oxycodone/Acetaminophen (Percocet 10/325 Mg Tab) 1 tab PO BID PRN PRN Reason: Pain, severe (8-10) Pantoprazole Sodium (Protonix Inj) 40 mg IVP DAILY DANNY Last Admin: 05/22/17 09:01 Dose: 40 mg Saliva Substitute (Saliva Substitute) 0 ml PO Q4 DANNY Last Admin: 05/22/17 12:06 Dose: 1 ml Zolpidem Tartrate (Ambien) 5 mg PO HS PRN; Protocol PRN Reason: Insomnia Last Admin: 05/22/17 01:09 Dose: 5 mg - Labs Labs: 05/22/17 05:00 05/22/17 05:00 Attending/Attestation - Attestation I have personally seen and examined this patient.: Yes I have fully participated in the care of the patient.: Yes I have reviewed all pertinent clinical information, including history, physical exam and plan: Yes Notes (Text): 05/22/17 16:01 42 year old female with past medical history of diabetes and chronic back pain who presented with complaint of abdominal/chest pain with nausea and vomiting. She was found to be in DKA and started on iv fluids and insulin drip. Her anion gap has closed and she was switched to basal insulin. Serial cardiac enzymes were negative and ACS was ruled out ACS. Her GI symptoms have resolved. CT abd/pelvis was negative and she is tolerating diet. Will monitor her fingersticks and adjust her insulin accordingly. Leukocytosis was likely reactive secondary to above and is improving. Will consider to discontinue antibiotics if cultures are negative. She was counselled on smoking cessation. Charito Ornelas MD Hospitalist.
--- NOTE | 2017-05-22 15:42 | CARD ---
APPROVED REPORT EKG Measurement Heart [id number] <Conclusion> Normal sinus rhythm Normal ECG
[2017-05-22] MEDS ORDERED: Insulin Detemir 100 units/ml Vial (Levemir) SC SCH (22:00)
[2017-05-23] MEDS: Saliva Substitute 44.3 ML PO SCH (00:01)
[2017-05-23] MEDS: Sodium Chloride 0.9% 1,000 ML IV SCH (01:59)
[2017-05-23] MEDS: DiphenhydrAMINE 50 mg/ml Inj IVP PRN (02:56)
[2017-05-23] MEDS ORDERED: Oxycodone/Acetaminophen 5/325 mg Tab PO STA (03:11)
[2017-05-23 03:22] VITALS: BP 149/88; PULSE 56; RESP 18; TEMP 98.1; O2SAT 100
[2017-05-23] MEDS ORDERED: Oxycodone/Acetaminophen 10/325 mg Tab PO STA (03:35)
--- NOTE | 2017-05-23 17:36 | CP.PCM.DIS ---
<Bettina Duenas - Last Filed: 05/23/17 17:19> Provider - Provider Date of Admission: 05/21/17 15:33 Attending physician: Charito Ornelas MD Primary care physician: Rylan Jaime MD Time Spent in preparation of Discharge (in minutes): 25 Diagnosis - Discharge Diagnosis (1) Noncompliance with medication regimen Status: Active Priority: Medium (2) Ketoacidosis in diabetes mellitus Status: Acute Hospital Course - Lab Results Lab Results: Micro Results 05/21/17 19:33 Blood-Venous Blood Culture - Preliminary NO GROWTH AFTER 24 HOURS 05/21/17 19:33 Blood-Venous Blood Culture - Preliminary NO GROWTH AFTER 24 HOURS Most Recent Lab Values WBC 21.9 10^3/ul (4.5-11.0) H 05/22/17 05:00 RBC 4.24 10^6/uL (3.5-6.1) 05/22/17 05:00 Hgb 12.2 g/dL (12.0-16.0) D 05/22/17 05:00 Hct 36.2 % (36.0-48.0) 05/22/17 05:00 MCV 85.4 fl (80.0-105.0) 05/22/17 05:00 MCH 28.8 pg (25.0-35.0) 05/22/17 05:00 MCHC 33.7 g/dl (31.0-37.0) 05/22/17 05:00 RDW 14.5 % (11.5-14.5) 05/22/17 05:00 Plt Count 370 10^3/uL (120.0-450.0) 05/22/17 05:00 MPV 10.5 fl (7.0-11.0) 05/22/17 05:00 Gran % 72.8 % (50.0-68.0) H 05/22/17 05:00 Lymph % (Auto) 20.7 % (22.0-35.0) L 05/22/17 05:00 Simpson % (Auto) 5.8 % (1.0-6.0) 05/22/17 05:00 Eos % (Auto) 0.5 % (1.5-5.0) L 05/22/17 05:00 Baso % (Auto) 0.2 % (0.0-3.0) 05/22/17 05:00 Gran # 15.94 (1.4-6.5) H 05/22/17 05:00 Lymph # (Auto) 4.5 (1.2-3.4) H 05/22/17 05:00 Simpson # (Auto) 1.3 (0.1-0.6) H 05/22/17 05:00 Eos # (Auto) 0.1 (0.0-0.7) 05/22/17 05:00 Baso # (Auto) 0.04 K/mm3 (0.0-2.0) 05/22/17 05:00 Neutrophils % (Manual) 91 % (50.0-70.0) H 05/21/17 13:00 Lymphocytes % (Manual) 4 % (22.0-35.0) L 05/21/17 13:00 Monocytes % (Manual) 5 % (1.0-6.0) 05/21/17 13:00 pO2 53 mm/Hg (30-55) 05/21/17 17:26 VBG pH 7.21 (7.32-7.43) L 05/21/17 17:26 VBG pCO2 34.0 (40-60) L 05/21/17 17:26 VBG HCO3 13.6 mmol/l (21-28) L 05/21/17 17:26 VBG Total CO2 14.6 mmol.L (22-28) L 05/21/17 17:26 VBG O2 Sat (Calc) 90.9 % (40-65) H 05/21/17 17:26 VBG Base Excess -13.2 mmol/L (0.0-2.0) L 05/21/17 17:26 VBG Potassium 3.8 mmol/L (3.6-5.2) 05/21/17 17:26 Sodium 136.0 mmol/L (132-148) 05/21/17 17:26 Chloride 101.0 mmol/L (98-107) 05/21/17 17:26 Glucose 378 mg/dl (65-105) H 05/21/17 17:26 Lactate 2.5 mmol/L (0.7-2.1) H 05/21/17 17:26 FiO2 21.0 % 05/21/17 17:26 Sodium 138 mmol/L (132-148) 05/22/17 05:00 Potassium 3.7 mmol/L (3.6-5.0) 05/22/17 05:00 Chloride 110 mmol/L (98-107) H 05/22/17 05:00 Carbon Dioxide 22 mmol/L (21-33) 05/22/17 05:00 Anion Gap 10 (10-20) 05/22/17 05:00 BUN 15 mg/dL (7-21) 05/22/17 05:00 Creatinine 0.6 mg/dl (0.7-1.2) L 05/22/17 05:00 Est GFR ( Amer) > 60 05/22/17 05:00 Est GFR (Non-Af Amer) > 60 05/22/17 05:00 POC Glucose (mg/dL) 201 mg/dL (65-110) H 05/23/17 02:15 Random Glucose 176 mg/dL (70-110) H 05/22/17 05:00 Serum Osmolality 324 mosm/kg (272-300) H 05/21/17 13:00 Calcium 8.6 mg/dL (8.4-10.5) 05/22/17 05:00 Total Bilirubin 0.4 mg/dL (0.2-1.3) 05/22/17 05:00 AST 16 U/L (14-36) 05/22/17 05:00 ALT 24 U/L (7-56) 05/22/17 05:00 Alkaline Phosphatase 66 U/L (38-126) 05/22/17 05:00 Troponin I < 0.01 ng/mL 05/22/17 00:30 Total Protein 5.2 g/dL (5.8-8.3) L 05/22/17 05:00 Albumin 2.7 g/dL (3.0-4.8) L 05/22/17 05:00 Globulin 2.5 gm/dL 05/22/17 05:00 Albumin/Globulin Ratio 1.1 (1.1-1.8) 05/22/17 05:00 Lipase 16 U/L (23-300) L 05/21/17 13:00 Procalcitonin 0.09 NG/ML (0.19-0.49) L 05/21/17 16:00 Venous Blood Potassium 3.8 mmol/L (3.6-5.2) 05/21/17 17:26 Urine Color Yellow (YELLOW) 05/21/17 18:00 Urine Appearance Clear (CLEAR) 05/21/17 18:00 Urine pH 6.0 (4.7-8.0) 05/21/17 18:00 Ur Specific Tuthill 1.020 (1.005-1.035) 05/21/17 18:00 Urine Protein Negative mg/dL (<30 mg/dL) 05/21/17 18:00 Urine Glucose (UA) >=1000 mg/dL (NEGATIVE) 05/21/17 18:00 Urine Ketones >=80 mg/dL (NEGATIVE) 05/21/17 18:00 Urine Blood Negative (NEGATIVE) 05/21/17 18:00 Urine Nitrate Negative (NEGATIVE) 05/21/17 18:00 Urine Bilirubin Negative (NEGATIVE) 05/21/17 18:00 Urine Urobilinogen 0.2 E.U./dL (<1 E.U./dL) 05/21/17 18:00 Ur Leukocyte Esterase Negative Luzmaria/uL (NEGATIVE) 05/21/17 18:00 Influenza Typ A,B (EIA) Negative for flu a/b (NEGATIVE) 05/21/17 15:30 - Hospital Course Hospital Course: 42 y/o female, PMH of insulin dependant diabetes diagnosed in 2008, and chronic low back pain, presents complaining of nausea and vomiting x21 episodes for the past two days. Patient was noted to be in DKA in the ER, likely 2/2 to medication noncompliance. She was admitted to the ICU on an insulin drip, then eventually transferred after anion gap closed and insulin regimen converted to basal/bolus. Patient was tolerating PO, and was on her normal insulin regimen. She was also started on her home regimen of narcotic analgesics, as confirmed by her outpatient pharmacy. Patient also had chest pain, and ACS was ruled out. Patient also had leukocytosis and lactic acidosis, but sepsis workup was negative. This morning, patient eloped, complaining of pain, despite being given additional doses of her pain medications for breakthrough pain. She was not seen prior to her elopement. Discharge Exam - Head Exam Head Exam: ATRAUMATIC - Additional Findings Additional findings: Patient was not examined prior to her elopement. Discharge Plan - Follow Up Plan Condition: GUARDED Disposition: AGAINST MEDICAL ADVICE Instructions: Weakness (ED) Referrals: Rylan Jaime MD [Primary Care Provider] - <Charito Ornelas - Last Filed: 05/23/17 18:23> Provider - Provider Date of Admission: 05/21/17 15:33 Attending physician: Charito Ornelas MD Primary care physician: Rylan Jaime MD Hospital Course - Lab Results Lab Results: Micro Results 05/21/17 19:33 Blood-Venous Blood Culture - Preliminary NO GROWTH AFTER 24 HOURS 05/21/17 19:33 Blood-Venous Blood Culture - Preliminary NO GROWTH AFTER 24 HOURS Most Recent Lab Values WBC 21.9 10^3/ul (4.5-11.0) H 05/22/17 05:00 RBC 4.24 10^6/uL (3.5-6.1) 05/22/17 05:00 Hgb 12.2 g/dL (12.0-16.0) D 05/22/17 05:00 Hct 36.2 % (36.0-48.0) 05/22/17 05:00 MCV 85.4 fl (80.0-105.0) 05/22/17 05:00 MCH 28.8 pg (25.0-35.0) 05/22/17 05:00 MCHC 33.7 g/dl (31.0-37.0) 05/22/17 05:00 RDW 14.5 % (11.5-14.5) 05/22/17 05:00 Plt Count 370 10^3/uL (120.0-450.0) 05/22/17 05:00 MPV 10.5 fl (7.0-11.0) 05/22/17 05:00 Gran % 72.8 % (50.0-68.0) H 05/22/17 05:00 Lymph % (Auto) 20.7 % (22.0-35.0) L 05/22/17 05:00 Simpson % (Auto) 5.8 % (1.0-6.0) 05/22/17 05:00 Eos % (Auto) 0.5 % (1.5-5.0) L 05/22/17 05:00 Baso % (Auto) 0.2 % (0.0-3.0) 05/22/17 05:00 Gran # 15.94 (1.4-6.5) H 05/22/17 05:00 Lymph # (Auto) 4.5 (1.2-3.4) H 05/22/17 05:00 Simpson # (Auto) 1.3 (0.1-0.6) H 05/22/17 05:00 Eos # (Auto) 0.1 (0.0-0.7) 05/22/17 05:00 Baso # (Auto) 0.04 K/mm3 (0.0-2.0) 05/22/17 05:00 Neutrophils % (Manual) 91 % (50.0-70.0) H 05/21/17 13:00 Lymphocytes % (Manual) 4 % (22.0-35.0) L 05/21/17 13:00 Monocytes % (Manual) 5 % (1.0-6.0) 05/21/17 13:00 pO2 53 mm/Hg (30-55) 05/21/17 17:26 VBG pH 7.21 (7.32-7.43) L 05/21/17 17:26 VBG pCO2 34.0 (40-60) L 05/21/17 17:26 VBG HCO3 13.6 mmol/l (21-28) L 05/21/17 17:26 VBG Total CO2 14.6 mmol.L (22-28) L 05/21/17 17:26 VBG O2 Sat (Calc) 90.9 % (40-65) H 05/21/17 17:26 VBG Base Excess -13.2 mmol/L (0.0-2.0) L 05/21/17 17:26 VBG Potassium 3.8 mmol/L (3.6-5.2) 05/21/17 17:26 Sodium 136.0 mmol/L (132-148) 05/21/17 17:26 Chloride 101.0 mmol/L (98-107) 05/21/17 17:26 Glucose 378 mg/dl (65-105) H 05/21/17 17:26 Lactate 2.5 mmol/L (0.7-2.1) H 05/21/17 17:26 FiO2 21.0 % 05/21/17 17:26 Sodium 138 mmol/L (132-148) 05/22/17 05:00 Potassium 3.7 mmol/L (3.6-5.0) 05/22/17 05:00 Chloride 110 mmol/L (98-107) H 05/22/17 05:00 Carbon Dioxide 22 mmol/L (21-33) 05/22/17 05:00 Anion Gap 10 (10-20) 05/22/17 05:00 BUN 15 mg/dL (7-21) 05/22/17 05:00 Creatinine 0.6 mg/dl (0.7-1.2) L 05/22/17 05:00 Est GFR ( Amer) > 60 05/22/17 05:00 Est GFR (Non-Af Amer) > 60 05/22/17 05:00 POC Glucose (mg/dL) 201 mg/dL (65-110) H 05/23/17 02:15 Random Glucose 176 mg/dL (70-110) H 05/22/17 05:00 Serum Osmolality 324 mosm/kg (272-300) H 05/21/17 13:00 Calcium 8.6 mg/dL (8.4-10.5) 05/22/17 05:00 Total Bilirubin 0.4 mg/dL (0.2-1.3) 05/22/17 05:00 AST 16 U/L (14-36) 05/22/17 05:00 ALT 24 U/L (7-56) 05/22/17 05:00 Alkaline Phosphatase 66 U/L (38-126) 05/22/17 05:00 Troponin I < 0.01 ng/mL 05/22/17 00:30 Total Protein 5.2 g/dL (5.8-8.3) L 05/22/17 05:00 Albumin 2.7 g/dL (3.0-4.8) L 05/22/17 05:00 Globulin 2.5 gm/dL 05/22/17 05:00 Albumin/Globulin Ratio 1.1 (1.1-1.8) 05/22/17 05:00 Lipase 16 U/L (23-300) L 05/21/17 13:00 Procalcitonin 0.09 NG/ML (0.19-0.49) L 05/21/17 16:00 Venous Blood Potassium 3.8 mmol/L (3.6-5.2) 05/21/17 17:26 Urine Color Yellow (YELLOW) 05/21/17 18:00 Urine Appearance Clear (CLEAR) 05/21/17 18:00 Urine pH 6.0 (4.7-8.0) 05/21/17 18:00 Ur Specific Tuthill 1.020 (1.005-1.035) 05/21/17 18:00 Urine Protein Negative mg/dL (<30 mg/dL) 05/21/17 18:00 Urine Glucose (UA) >=1000 mg/dL (NEGATIVE) 05/21/17 18:00 Urine Ketones >=80 mg/dL (NEGATIVE) 05/21/17 18:00 Urine Blood Negative (NEGATIVE) 05/21/17 18:00 Urine Nitrate Negative (NEGATIVE) 05/21/17 18:00 Urine Bilirubin Negative (NEGATIVE) 05/21/17 18:00 Urine Urobilinogen 0.2 E.U./dL (<1 E.U./dL) 05/21/17 18:00 Ur Leukocyte Esterase Negative Luzmaria/uL (NEGATIVE) 05/21/17 18:00 Influenza Typ A,B (EIA) Negative for flu a/b (NEGATIVE) 05/21/17 15:30 Attending/Attestation - Attestation I have reviewed all pertinent clinical information, including history, physical exam and plan: Yes Notes (Text): 05/23/17 18:23 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
--- NOTE | 2017-05-24 08:59 | PN ---
DATE: 05/22/2017 COUNTER SERVER NOTE SUBJECTIVE: The patient is resting in bed, awake and alert. Stating that she is ready for breakfast. She does complain of pain in her back. States that she has severe herniated disk, that has been a longstanding problem. The patient has no nausea or vomiting. No diarrhea. No shortness of breath, cough or wheezing. No fever, chills. She is on IV fluids, is off the insulin drip and her anion gap has closed. PHYSICAL EXAMINATION VITAL SIGNS: Note that her temperature is 98.1, pulse is 82, respirations of 23 and BP is 100/50. SKIN: Warm and dry. HEENT: Head, atraumatic and normocephalic. Eyes, reactive to light. Ears, nose and throat seem to be within normal limits. NECK: Supple. No JVD. No thyroid enlargement or lymph nodes. HEART: Regular rate and rhythm. Normal S1, S2. LUNGS: Reveal good breath sounds bilaterally. ABDOMEN: Soft, nontender. Normal bowel sounds. No organomegaly noted. GENITALIA: Deferred. RECTAL: Deferred. MUSCULOSKELETAL: No joint deformities. EXTREMITIES: Reveal no significant lower extremity edema. NEUROLOGICAL: She seemed to be grossly intact. LABORATORY DATA: As far as her laboratories, her white count is 21.9, hemoglobin is 12.3, hematocrit 36.2 with platelets of 370,000. Her sodium is 138, potassium 3.7, chloride 110, CO2 of 22 with a BUN of 15, creatinine of 0.6 and a glucose of 147. IMPRESSION: As far as my impression, this patient had presented with diabetic ketoacidosis and has a history of type 2 diabetes. She also carries a diagnosis of Crohn disease and herniated disk in her lower back with chronic back pain. PLAN: As far as our plan, we will continue with IV fluids. The patient has been scheduled for diabetic diet. We will continue with cefepime antibiotics and subcutaneous heparin as well as Protonix and the patient will get fingersticks and at this time if she tolerates p.o. intake, we will start the Levemir and we will continue to follow and treat aggressively along with the other consultants and the primary care doctor. Josiah Bey, MD Job # [id number]
[2017-05-25 16:32] LABS: BETA-HYDROXYBUTYRIC ACID 630 mcg/mL
== END 2017-05-23 06:25 | disposition left against medical advice (07) | DRG 294 ==
LOC: ED 12:40 → ERH 15:33 → ICU 18:38 → 3RSO 05-22 13:38
PROVIDERS: ADMIT Internal Medicine; ATTEND Internal Medicine
DX: E11.10 Type 2 diabetes mellitus with ketoacidosis without coma (principal); E87.3 Alkalosis; E87.2 Acidosis; Z91.14 Patient's other noncompliance with medication regimen; G89.29 Other chronic pain; M79.605 Pain in left leg; K50.90 Crohn's disease, unspecified, without complications; F17.210 Nicotine dependence, cigarettes, uncomplicated; Z79.4 Long term (current) use of insulin; Z98.51 Tubal ligation status

== ENCOUNTER 2018-07-19 17:18 | Emergency (ER) | payer SELFPAY ==
[2018-07-19] MEDS ORDERED: Sodium Chloride 0.9% 1,000 ML IV ONE (17:35)
[2018-07-19 17:47] VITALS: RESP 18; O2SAT 98; BMI 26.6
--- NOTE | 2018-07-19 17:47 | ED PDOC ---
Arrival/HPI - General Chief Complaint: High Blood Sugar Time Seen by Provider: 07/19/18 17:25 Historian: Patient - History of Present Illness Time/Duration: Other (This morning) Symptom Onset: Gradual Symptom Course: Unchanged Severity Level: Moderate Activities at Onset: Rest Associated Symptoms (Text): 07/19/18 17:45 Patient complains of nausea vomiting and elevated blood sugar this morning. No diarrhea. No abdominal pain. No fever or chills. No travel or exposure. Similar to previous episodes of DKA. She has taken her insulin today. Past Medical History - Past History Past History: Non-Contributing - Infectious Disease Hx of Infectious Diseases: None - Tetanus Immunization Tetanus Immunization: Unknown - Cardiac Hx Cardiac Disorders: No - Pulmonary Hx Respiratory Disorders: No - Neurological Hx Neurological Disorder: Yes Hx Migraine: Yes Hx Seizures: Yes (child) - HEENT Hx HEENT Disorder: No - Renal Hx Renal Disorder: No - Endocrine/Metabolic Hx Endocrine Disorders: Yes Hx Diabetes Mellitus Type 2: Yes Hx Hypothyroidism: Yes - Hematological/Oncological Hx Blood Disorders: No - Integumentary Hx Dermatological Disorder: No - Musculoskeletal/Rheumatological Hx Musculoskeletal Disorders: Yes Hx Back Pain: Yes Hx Falls: No Other/Comment: sciatica - Gastrointestinal Hx Gastrointestinal Disorders: Yes Hx Crohn's Disease: Yes (dc 03/2014) - Genitourinary/Gynecological Hx Genitourinary Disorders: No - Psychiatric Hx Psychophysiologic Disorder: Yes Hx Anxiety: Yes Hx Depression: Yes Hx Substance Use: No - Past Surgical History Past Surgical History: No Previous - Surgical History Other/Comment: etopic pregnacy May 2016 fallopian tube removed. Laproscopic for ovarian cysts. - Anesthesia Hx Anesthesia: No Hx Anesthesia Reactions: No Hx Malignant Hyperthermia: No - Suicidal Assessment Feels Threatened In Home Enviroment: No Family/Social History - Physician Review Nursing Documentation Reviewed: Yes Family/Social History: Unknown Family HX Smoking Status: Heavy Smoker > 10 Cigarettes Daily Hx Alcohol Use: No Hx Substance Use: No Hx Substance Use Treatment: No Allergies/Home Meds Allergies/Adverse Reactions: Allergies No Known Allergies Allergy (Verified 07/19/18 17:32) Home Medications: Home Meds Medication Instructions Recorded Confirmed Insulin Lispro [humALOG] 15 units SC AC 06/15/16 02/27/17 Insulin Detemir [Levemir] 35 units SC HS 05/22/17 05/22/17 Oxycodone HCl/Acetaminophen 1 each PO BID PRN 05/22/17 05/22/17 [Percocet 10-325 mg Tablet] Review of Systems - Physician Review All systems were reviewed & negative as marked: Yes - Review of Systems Constitutional: absent: Fatigue, Fevers Respiratory: absent: SOB, Cough, Wheezing Cardiovascular: absent: Chest Pain, Palpitations, Syncope Gastrointestinal: Nausea, Vomiting, Anorexia. absent: Abdominal Pain, Diarrhea Genitourinary Female: absent: Dysuria, Frequency, Hematuria Neurological: absent: Headache, Dizziness, Focal Weakness Physical Exam Vital Signs Pulse Resp BP Pulse Ox 07/19/18 17:33 84 18 145/68 98 Temperature: Afebrile Blood Pressure: Normal Pulse: Regular Respiratory Rate: Normal Appearance: Positive for: Well-Appearing, Non-Toxic, Uncomfortable Pain Distress: None Mental Status: Positive for: Alert and Oriented X 3 - Systems Exam Head: Present: Atraumatic, Normocephalic Pupils: Present: PERRL Extroacular Muscles: Present: EOMI Conjunctiva: Present: Normal Mouth: Present: Moist Mucous Membranes Pharnyx: No: ERYTHEMA, EXUDATE, TONSILS ENLARGED Neck: Present: Normal Range of Motion Respiratory/Chest: Present: Clear to Auscultation, Good Air Exchange. No: Respiratory Distress, Accessory Muscle Use Cardiovascular: Present: Regular Rate and Rhythm, Normal S1, S2. No: Murmurs Abdomen: No: Tenderness, Distention, Peritoneal Signs, Rebound, Guarding Upper Extremity: Present: Normal Inspection. No: Cyanosis, Edema Lower Extremity: Present: Normal Inspection. No: Edema Neurological: Present: GCS=15, CN II-XII Intact, Speech Normal, Motor Func Grossly Intact Skin: Present: Warm, Dry, Normal Color. No: Rashes Psychiatric: Present: Alert, Oriented x 3, Normal Insight, Normal Concentration Medical Decision Making ED Course and Treatment: 07/19/18 18:45 EKG shows normal sinus rhythm rate approximately 65 with a sinus arrhythmia and no acute ST or T wave changes. 07/19/18 19:46 There has been no vomiting in the emergency department. Patient has tolerated clear liquids with no further vomiting. She states she feels much better and wants to go home. She was instructed to follow-up in the emergency department at any time for any further vomiting. She was instructed to monitor her blood sugar and appropriately dose her insulin. Follow-up with PMD. - Medication Orders Current Medication Orders: Sodium Chloride (Sodium Chloride 0.9%) 1,000 mls @ 500 mls/hr IV ONCE ONE Stop: 07/19/18 19:34 Discontinued Medications Ondansetron HCl (Zofran Inj) 4 mg IVP ONCE ONE Stop: 07/19/18 17:36 Disposition/Present on Arrival - Present on Arrival Any Indicators Present on Arrival: No History of DVT/PE: No History of Uncontrolled Diabetes: Yes Urinary Catheter: No History of Decub. Ulcer: No History Surgical Site Infection Following: None - Disposition Have Diagnosis and Disposition been Completed?: Yes Diagnosis: Hyperglycemia, Uncontrolled diabetes mellitus, Nausea & vomiting Disposition: HOME/ ROUTINE Disposition Time: 20:06 Patient Plan: Discharge Condition: IMPROVED Discharge Instructions (ExitCare): Viral Gastroenteritis, Nausea and Vomiting, Adult (DC), Blood Glucose Monitoring Additional Instructions: Monitor your blood sugar and adjust your insulin dosage appropriately. Follow- up in the ER as needed. Follow-up with PMD. Prescriptions: Ondansetron ODT [Zofran ODT] 4 mg PO Q6 #20 odt Referrals: PCP,NO [Primary Care Provider] - Follow up with primary Forms: [employer] ([place])
[2018-07-19] MEDS ORDERED: Insulin Regular 1 UNITS/0.01 ML ML SC STA (17:51)
[2018-07-19 18:01] LABS: BASO # 0.06 K/mm3 (0.0-2.0); BASO % 0.4 % (0.0-3.0); EOS # 0.2 (0.0-0.7); EOS % 1.3 % (1.5-5.0); HEMOGLOBIN 15.8 g/dL (12.0-16.0); LYMPH # 2.8 (1.2-3.4); LYMPH % 19.8 % (22.0-35.0); MEAN CELL VOLUME 85.1 fl (80.0-105.0); MEAN CORPUSCULAR HEMOGLOBIN 29.1 pg (25.0-35.0); MEAN CORPUSCULAR HGB CONC 34.2 g/dl (31.0-37.0); MEAN PLATELET VOLUME 10.3 fl (7.0-11.0); MONO # 0.6 (0.1-0.6); MONO % 4.4 % (1.0-6.0); RBC 5.43 10^6/uL (3.5-6.1); RED CELL DISTRIBUTION WIDTH 14.5 % (11.5-14.5)
[2018-07-19 18:02] LABS: VENOUS BLOOD GAS BASE EXCESS 3.4 mmol/L (0.0-2.0); VENOUS BLOOD GAS PO2 61 mm/Hg (30-55); VENOUS BLOOD PH 7.42 (7.32-7.43)
[2018-07-19 18:12] LABS: ALB/GLOB RATIO 1.4 (1.1-1.8); ALBUMIN 4.1 g/dL (3.0-4.8); ALT/SGPT 19 U/L (7-56); AST/SGOT 23 U/L (14-36); BLOOD UREA NITROGEN 14 mg/dL (7-21); CALCIUM 9.4 mg/dL (8.4-10.5); GFR NON-AFRICAN AMERICAN > 60; LIPASE 19 U/L (23-300)
[2018-07-19 18:23] LABS: TROPONIN I < 0.01 ng/mL
[2018-07-19 22:54] VITALS: BP 130/74; PULSE 70
--- NOTE | 2018-07-20 10:55 | CARD ---
APPROVED REPORT Date of service: 07/19/2018 EKG Measurement Heart [id number] AL [id number] <Conclusion> Sinus rhythm with marked sinus arrhythmia Otherwise normal ECG
== END 2018-07-19 22:56 | disposition home or self-care (01) ==
LOC: ED 17:18
DX: E11.65 Type 2 diabetes mellitus with hyperglycemia (principal); R11.2 Nausea with vomiting, unspecified
CPT/HCPCS: 80053; 81025; 82550; 82803; 82948; 83615; 83690; 83735; 84484; 85025; 93005; 96361; 96374; 99283; J2405; J7040